=== PATIENT | female | born 1985 | race Caucasian/White ===

== ENCOUNTER → 2018-04-28 | Outpatient (CLI) | payer BC ==
--- NOTE | 2018-04-28 12:14 | MR ---
EXAMINATION TYPE: MR thoracic spine wo con DATE OF EXAM: 04/28/2018 11:43 AM COMPARISON: NONE HISTORY: Back pain Multiplanar MultiSpin echo imaging of the thoracic spine was performed. Disc spaces: No evidence for herniation protrusion or significant degenerative disc disease. Spinal canal: No evidence for canal stenosis. No intrinsic or extrinsic lesion. Thoracic spinal cord: Thoracic spinal cord is of normal caliber and signal. Paraspinal soft tissues: No evidence for paraspinal mass. No destructive lesions seen. Vertebral segments: No evidence for fracture. A few small scattered hemangiomas are noted of the thor acic segments. Hemangiomas at T9, T10 and T12. IMPRESSION: 1 several small hemangiomas noted. Otherwise unremarkable study.
== END | disposition home or self-care (01) ==
LOC: RADMRIMAIN 10:54
PROVIDERS: ATTEND Psychiatry & Neurology Neurology
DX: D18.00 Hemangioma unspecified site (principal)
CPT/HCPCS: 72146

== ENCOUNTER → 2018-08-25 | Outpatient (CLI) | payer BC ==
[2018-08-24 15:35] VITALS: BMI 30.1
[2018-08-25 11:55] VITALS: BP 123/85; PULSE 74; RESP 16
--- NOTE | 2018-08-25 12:22 | P.CONS ---
History of Present Illness - Reason for Consult Consult date: 08/25/18 - Chief Complaint Upper back pain - History of Present Illness This is a 33-year-old female with neck pain, mid back pain, and lower back pain. The patient is here today mostly for her upper and mid back pain. She states that her neurologist (Dr Graff)works on her neck and on her lumbar spine but he referred her to us to try interventional procedures on her thoracic spine. The patient is mostly around the shoulder blades today is more on the right side than the left side. The pain does not radiate around her chest. She denies any numbness or tingling in the chest wall area. She also denies any weakness in the upper or lower extremities or any paresthesia. She denies any weight loss. This pain is constant it sometimes wakes her up at night. The patient has been using Naprosyn and Lyrica for this pain. The patient states that we did residency ablation on her thoracic spine in 2013 which gave her a few years of pain relief. She is here today in hope that we can schedule her for another RFA on the thoracic medial branches. Past Medical History Past Medical History: Musculoskeletal Disorder Additional Past Medical History / Comment(s): back & neck pain History of Any Multi-Drug Resistant Organisms: None Reported Past Surgical History: Adenoidectomy, Orthopedic Surgery, Tonsillectomy Additional Past Surgical History / Comment(s): LEFT WRIST PIN PLACEMENT Past Anesthesia/Blood Transfusion Reactions: No Reported Reaction Past Psychological History: No Psychological Hx Reported Smoking Status: Never smoker Past Alcohol Use History: Occasional Past Drug Use History: None Reported - Past Family History Mother Family Medical History: No Reported History Medications and Allergies Home Medications Medication Instructions Recorded Confirmed Type ALPRAZolam [Xanax] 0.5 mg PO DAILY 08/24/18 08/25/18 History DULoxetine HCL [Cymbalta] 60 mg PO DAILY 08/24/18 08/25/18 History Naproxen [Naprosyn] 500 mg PO Q12HR 08/24/18 08/25/18 History tiZANidine HCL [Zanaflex] 2 mg PO BID 08/24/18 08/25/18 History tiZANidine HCL [Zanaflex] 4 mg PO HS 08/24/18 08/25/18 History Allergies Allergy/AdvReac Type Severity Reaction Status Date / Time No Known Allergies Allergy Verified 08/25/18 11:47 Physical Exam Vitals: Vital Signs Pulse Resp BP Pulse Ox 08/25/18 11:48 74 16 123/85 99 Intake and Output 08/24/18 08/25/18 08/25/18 22:59 06:59 14:59 Other: Weight 89.811 kg - Constitutional General appearance: average body habitus - EENT Eyes: PERRLA - Respiratory Respiratory: bilateral: CTA - Cardiovascular Rhythm: regular Heart sounds: normal: S1, S2 - Neurologic Neuro exam of the upper and lower extremities is within normal limits. She has mild tenderness in the upper and mid thoracic paravertebral area on the right side more than the left side. Neurologic: CNII-XII intact - Psychiatric Psychiatric: A&O x's 3, appropriate affect, intact judgment & insight Results Results: The patient had an MRI of the thoracic spine which was mostly within normal limits except for multiple hemangiomas. Assessment and Plan Plan: This is a 33-year-old female with what seems to be thoracic spondylosis without myelopathy. The patient had RFA on the thoracic medial branches previously was give her a few years of pain relief. At this point I will schedule the patient to have a diagnostic thoracic medial branch block under fluoroscopic guidance bilaterally. The levels will be decided to with a day of the procedure. If she gets good results from that then we can proceed with RFA. 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 I thank you for the referral
== END ==
LOC: PNWHC3 11:36
PROVIDERS: ATTEND Anesthesiology
DX: M47.814 Spondylosis without myelopathy or radiculopathy, thoracic region (principal); Z79.899 Other long term (current) drug therapy; Z79.2 Long term (current) use of antibiotics; Z90.89 Acquired absence of other organs
CPT/HCPCS: 99211

== ENCOUNTER 2018-09-15 09:00 | Day surgery (SDC) | payer BC ==
[2018-09-13 12:59] VITALS: BMI 29.5
[~2018-09-15 09:00] MED LIST: SODIUM CHLORIDE 0.9% 500 ML 500 ML IV SCH
[2018-09-15 10:07] VITALS: RESP 16; TEMP 98.2
[2018-09-15] MEDS ORDERED: LACTATED RINGERS 1,000 ML IV ONE (10:11)
[2018-09-15] MEDS ORDERED: IV FLUID CONTINUATION 1,000 ML IV ONE ×2 (10:53)
[2018-09-15 11:34] VITALS: BP 123/70; PULSE 80
--- NOTE | 2018-09-15 11:42 | P.PCN ---
Date of Procedure: 09/15/18 Surgeon: Dragan Shen Description of Procedure: PREOPERATIVE DIAGNOSIS : Thoracic spondylosis with Facet Arthropathy without myelopathy POSTOPERATIVE DIAGNOSIS: same PROCEDURE: Diagnostic thoracic medial branch block with fluoroscopy at bilateral T5, bilateral T6 ANESTHESIA: Local anesthetic; 2 mg midazolam as limb and 100 pg of fentanyl Surgeon: Dragan Shen MD PROCEDURE INDICATION: this is a very pleasant 33-year-old woman with a history of intractable thoracic pain. She presents today for thoracic medial branch nerve block. She has had thoracic radio frequency in the past and hopefully we are going down the past be able to help relieve her pain for a longer duration with this procedure. PROCEDURE DESCRIPTION: The patient was identified and evaluated in the preop holding area , risks and benefits and possible complications of the procedure and alternative were discussed with the patient, and the patient agreed to proceed with the procedure and signed the consent IV was started and vital signs monitored during the procedure and fluoroscopy was used to maximize the benefit and accuracy of the needle placement, and sedation was given to decrease patient anxiety, patient was taken to the procedure room and placed in prone position vital signs monitored in the back prepped. Under strict sterile technique using a right oblique fluoroscopy ,the junction of the transverse process and the superior articulating process of the vertebral body which corresponding to the fluoroscopy image of the eye of the Reed dog on the block side for the medial branches and subsequently , a 25-gauge 3.5 inch Quincke-type needles was placed at the junction of the base of the transverse process and the superior articular process at the appropriate level, and the needle was advanced until the periosteum contacted, needle placement confirmed with AP oblique and lateral view and after appropriate needle placement confirmed, and after negative aspiration, 0.5 mL of Marcaine 0.5% mixed with 40 mg depomedrol in divided doses was injected at each level and the needle subsequently removed. At the end of the procedure and the needles removed and a bandage applied after the skin was cleaned the cleaning solution patient taken to recovery room in stable condition and monitors in the recovery room for 20-30 minutes and discharged home in stable condition after discharge criteria met and patient will follow up for repeat of thoracic medial branch nerve block. EBL: Minimal COMPLICATION: None.
--- NOTE | 2018-09-15 12:12 | FL ---
Fluoroscopy HISTORY: Pain 4 seconds fluoroscopy time supplied to the referring clinician. 1 intraoperative C-arm images docume nt the procedure. See dictated report from anesthesia.
== END 2018-09-15 11:32 | disposition home or self-care (01) ==
LOC: ORPAIN 09:00
PROVIDERS: ATTEND Pain Medicine Pain Medicine
DX: M47.814 Spondylosis without myelopathy or radiculopathy, thoracic region (principal); D18.09 Hemangioma of other sites; Z79.1 Long term (current) use of non-steroidal anti-inflammatories (NSAID); Z79.899 Other long term (current) drug therapy
CPT/HCPCS: 81025; 64490; J2250; J1030; J3010

== ENCOUNTER 2018-10-06 09:25 | Day surgery (SDC) | payer BC ==
[2018-09-24 16:04] VITALS: BMI 29.5
[2018-10-06 10:17] VITALS: TEMP 98
[2018-10-06] MEDS ORDERED: LACTATED RINGERS 1,000 ML IV ONE (10:17)
--- NOTE | 2018-10-06 11:13 | P.PCN ---
Date of Procedure: 10/06/18 Surgeon: Marai L Schafer Pathology: none sent Condition: stable Disposition: PACU Description of Procedure: PREOPERATIVE DIAGNOSIS : Thoracic spondylosis with Facet Arthropathy without myelopathy POSTOPERATIVE DIAGNOSIS: same PROCEDURE: Diagnostic thoracic medial branch block with fluoroscopy at bilateral T5, bilateral T6 ANESTHESIA: Local anesthetic; and moderate conscious sedation with IV fentanyl and Versed PROCEDURE INDICATION: this is a very pleasant 33-year-old woman with a history of intractable thoracic pain. She presents today for thoracic medial branch nerve block. She has had thoracic radio frequency in the past and hopefully we are going down the past be able to help relieve her pain for a longer duration with this procedure. PROCEDURE DESCRIPTION: The patient was identified and evaluated in the preop holding area , risks and benefits and possible complications of the procedure and alternative were discussed with the patient, and the patient agreed to proceed with the procedure and signed the consent IV was started and vital signs monitored during the procedure and fluoroscopy was used to maximize the benefit and accuracy of the needle placement, and sedation was given to decrease patient anxiety, patient was taken to the procedure room and placed in prone position vital signs monitored in the back prepped. Under strict sterile technique using a right oblique fluoroscopy ,the junction of the transverse process and the superior articulating process of the vertebral body which corresponding to the fluoroscopy image of the eye of the Reed dog on the block side for the medial branches and subsequently , a 25-gauge 3.5 inch Quincke-type needles was placed at the junction of the base of the transverse process and the superior articular process at the appropriate level, and the needle was advanced until the periosteum contacted, needle placement confirmed with AP oblique and lateral view and after appropriate needle placement confirmed, and after negative aspiration, 0.5 mL of Ropivacaine 0.5% mixed with 40 mg Kenalog in divided doses was injected at each level and the needle subsequently removed. At the end of the procedure and the needles removed and a bandage applied after the skin was cleaned the cleaning solution patient taken to recovery room in stable condition and monitors in the recovery room for 20-30 minutes and discharged home in stable condition after discharge criteria met and patient will follow up for repeat of thoracic medial branch nerve block. EBL:none COMPLICATION: None.
[2018-10-06] MEDS ORDERED: IV FLUID CONTINUATION 1,000 ML IV ONE (11:18)
[2018-10-06 11:20] VITALS: RESP 18
[2018-10-06 11:35] VITALS: BP 113/72; PULSE 66
--- NOTE | 2018-10-07 12:58 | FL ---
EXAMINATION TYPE: FL guided pain mgmt statistic DATE OF EXAM: 10/06/2018 HISTORY: Flouroscopy time 8 seconds of fluoroscopy provided. IMPRESSION: 1. Fluoroscopy time.
== END 2018-10-06 11:45 | disposition home or self-care (01) ==
LOC: ORPAIN 09:25
PROVIDERS: ATTEND Anesthesiology
DX: M47.814 Spondylosis without myelopathy or radiculopathy, thoracic region (principal); F41.9 Anxiety disorder, unspecified
CPT/HCPCS: 81025; 64490; 64491; J2250; J3301; J3010; 99152

== ENCOUNTER → 2018-10-27 | Outpatient (CLI) | payer BC ==
[2018-10-27 12:51] VITALS: PULSE 74; RESP 16
[2018-10-27 13:03] VITALS: BP 140/95
--- NOTE | 2018-10-27 13:34 | P.PN ---
Subjective Progress Note Date: 10/27/18 This is a follow-up visit for this 33 years old female with a chronic history of severe midback pain diagnosed with thoracic spondylosis, we have done diagnostic medial branch blocks of thoracic area bilaterally T5 and T6 levels, patient reported that she had excellent pain relief after each block , she had 100% improvement of her mid back pain after each block , the first diagnostic block her pain dropped from 8/10-0/10 on the second one she had pain 3/10 before and dropped to 0/10 after the block, patient denies any motor or sensory deficit she denies any fever or night sweats and she denies any change in the bowel movement or urination, she continued to use Zanaflex 4 mg twice a day and 4 mg daily at bedtime and naproxen 500 mg twice a day, she gets prescription refills from her primary care and she denies any side effects from the medication Objective - Vital Signs Vital signs: Vital Signs Temp Pulse 74 10/27/18 12:40 Resp 16 10/27/18 12:40 BP 140/95 10/27/18 12:40 Pulse Ox 97 10/27/18 12:40 Intake & Output 10/26/18 10/27/18 10/27/18 18:59 06:59 18:59 Weight 88.451 kg - Exam Physical Examinations : 1-Constitutiona : Cooperative , not in acute distress . 2-HEENT : nech ; supple , no Lymphadenopathy , normal thyroid size . eyes : no ptosis , no icterus, no photophobia . ENT : normal of hearing , normal oropharynx , no Thrush . 3- Respiratory : Chest clear to auscultations Bilaterally , no wheezing , no Rhonchi . 4- Cardiovascular : regular rate and rhythem , S1 , S2 , no S3 , no S4. 5- Gastrointestinal : abdomen soft no tenderness , bowel sounds , no organomegally . 6- Genitourinary : Defferred . 7- neurologic : Cranial nerve II to XII intact , no focal neurological deffecit . 8-psychatric : alert , oriented X 3 , appropriate affect , intact judgment and insight . 9-Lymphatic : no Lymphadenopathy . 10- musculoskeltal : Cervical Spine motor stregnth in the deltoid and biceps, normal right side , normal Left side motor stregnth biceps and the wrist extensors normal right side ,normal left side . motor stregnth in the triceps muscle . normal Right side , normal Left side deep tendon reflexes normal at the biceps , normal at Brachioradialis , normal at triceps. positive cervical facet loading test . Tenderness over the occipital nerve Thoracic spine= positive facet loading test mid thoracic area Lumber spine moter stegnth lower extremities , thigh and legs 5/5 Right side , 5/5 Left side Assessment and Plan Plan: Assessment and plan= chronic severe midback pain secondary to thoracic spondylosis, patient had 100% improvement of her midback pain after the diagnostic medial branch blocks thoracic area, she will be good candidate to have radiofrequency ablation of the thoracic medial branch, we will start with the right side T5 and right-sided T6 levels , and later on went to the left side , patient currently getting prescription refill Zanaflex and naproxen and she will continue to get refills from her primary , patient reported that she had an episode of severe headache , and she had an MRI of the cervical spine done, ages 2 and she will bring the MRI report with checked and we'll reevaluate her regarding her neck pain - PQRS measures = - Patient's medications are documented in the chart. -Tobacco use is negative and counseling.Given. -Patient's has not received pneumococcal vaccine. -Advanced care planning discussed, patient not eligible. -Opiate contract not signed. -Pain positive and follow-up visit/procedure is scheduled. -Patient's blood pressure measured [ 140/95 ] , and documented in the record ,and patient will follow up with the primary care. -Patient's weight was measured and body mass index [ 29.6 ] above the, within the normal limits and counseling was done. and patient instructed to follow-up with the primary care physician. -Patient was not identified as an unhealthy alcohol user Time with Patient: Less than 30
== END ==
LOC: PNWHC3 12:32
PROVIDERS: ATTEND Specialist
DX: G89.29 Other chronic pain (principal); M47.814 Spondylosis without myelopathy or radiculopathy, thoracic region; Z79.1 Long term (current) use of non-steroidal anti-inflammatories (NSAID); Z79.899 Other long term (current) drug therapy
CPT/HCPCS: 99211

== ENCOUNTER 2018-11-10 08:28 | Day surgery (SDC) | payer BC ==
[2018-11-09 09:19] VITALS: BMI 29.5
[2018-11-10 08:43] VITALS: RESP 16; TEMP 97.1
[2018-11-10] MEDS ORDERED: LIDOCAINE 1% 20 ML VIAL (10MG/ML) FOR IV START INTRADERMA ONE (08:47)
[2018-11-10] MEDS ORDERED: LACTATED RINGERS 1,000 ML IV ONE (08:47)
[2018-11-10] MEDS ORDERED: IV FLUID CONTINUATION 1,000 ML IV ONE ×2 (09:46)
--- NOTE | 2018-11-10 09:47 | P.PCN ---
Date of Procedure: 11/10/18 Preoperative Diagnosis: Thoracic spondylosis without myelopathy Postoperative Diagnosis: Same as above Procedure(s) Performed: Right thoracic medial branch radiofrequency ablation under fluoroscopic guidance for the medial branches T5, the C6, and T 7 Anesthesia: other (Moderate IV conscious sedation with fentanyl and Versed) Surgeon: Maria L Schafer Pathology: none sent Condition: stable Disposition: PACU Description of Procedure: The patient was seen in preoperative holding area consent was obtained. The painful area on the right side of her thoracic spine was marked. The patient then was brought into the procedure room and placed in prone position. ASA monitors applied. Skin was prepped with DuraPrep and draped in a sterile manner. Lidocaine 1% was used to numb the skin up at the target points that were medial to the superior lateral angle of each transverse process. I used 20 -gauge 100 mm with 10 mm curved active tip radio frequency ablation needles. After contacting bone at the target points mentioned above I withdrew the needles by 1 or 2 mm and then motor stimulation showed only local twitches of these needles with no radiation around the chest wall. I then prepared a solution of 2 MLS T0.5 percent +40 mg of Kenalog were injected 1 mL in each needle. After that. Radiofrequency ablation started for 90 seconds at 80C. The patient tolerated procedure well. Bon Wier were taken out and bandages were applied to the skin. I will order a chest x-ray to rule out pneumothorax in the PACU however before the procedure the needles were protected by the thoracic vertebra and never went deeper and the transverse processes of each vertebra. The patient will have the left side done in the near future.
[2018-11-10 10:06] VITALS: BP 98/62; PULSE 68
--- NOTE | 2018-11-10 10:19 | XR ---
EXAMINATION TYPE: XR chest 1V portable DATE OF EXAM: 11/10/2018 COMPARISON: Prior chest x-ray 01/06/2013 HISTORY: Status post thoracic pain procedure TECHNIQUE: Single frontal view of the chest is obtained. FINDINGS: Patient is rotated. There is no focal air space opacity, pleural effusion, or pneumothorax seen. The cardiac silhouette size is within normal limits. The osseous structures are intact. IMPRESSION: No evident complication status post thoracic procedure
--- NOTE | 2018-11-10 11:56 | FL ---
Fluoroscopy HISTORY: Pain 38 seconds fluoroscopy time supplied to the referring clinician. 1 intraoperative C-arm images docum ent the procedure. See dictated report from anesthesia.
--- NOTE | 2018-11-14 12:41 | CDI ---
Outpatient Documentation Clarification Form Date: 11/14/18 CDS/Classification Clerk Name: Diamond Leiva Phone: If any questions, call Kayla Laughlin [facility] at [phone] Patient Name: Jeaneth Arevalo Admit Date: 11/10/18 Discharge Date: 11/10/18 ATTENTION: The [facility] Coding Staff appreciate your assistance in clarifying documentation. Please respond to the clarification below the line at the bottom and electronically sign. The [facility] Coding staff will review the response and follow-up if needed. Please note: Queries are made part of the Legal Health Record. If you have any questions, please contact the [facility]. Dear Dr. Schafer, How many spinal levels were injected/ablated? T5, C6 (was C6 really ablated or did you mean T6?), and T7 could be interpreted to mean anywhere from 2 to 6 levels. Thank you for your kind consideration. 3 medial branches were ablated at the T5, T6, T7 levels. MTDD
== END 2018-11-10 10:55 | disposition home or self-care (01) ==
LOC: ORPAIN 08:28
PROVIDERS: ATTEND Anesthesiology
DX: M47.814 Spondylosis without myelopathy or radiculopathy, thoracic region (principal); Z79.1 Long term (current) use of non-steroidal anti-inflammatories (NSAID); Z79.899 Other long term (current) drug therapy
CPT/HCPCS: 81025; 71045; 64633; 64634; J2250; J3301; J3010; 99152

== ENCOUNTER → 2018-11-30 | Outpatient (CLI) | payer BC ==
[2018-11-30 11:51] VITALS: BP 136/87; PULSE 65; RESP 16
--- NOTE | 2018-11-30 12:16 | P.PAINPG ---
Subjective Progress Note Date: 11/30/18 This is a follow-up visit for this 33 years old female with a chronic history of severe midback pain diagnosed with thoracic spondylosis, we have done at the frequency ablation of the medial branch thoracic area right side T5/T6/T7 , and she reported that after the procedure she continued to have severe mid back Bilaterally, and she currently reports that the pain on the right side is worse than the left side, patient denies any motor or sensory deficit she denies any fever or night sweats and she denies any change in the bowel movement or urination, she continued to use Zanaflex 2 mg twice daily, and naproxen 500 mg twice a day, she gets prescription refills from her primary care and she denies any side effects from the medication Physical Examinations : 1-Constitutiona : Cooperative , not in acute distress . 2-HEENT : nech ; supple , no Lymphadenopathy , normal thyroid size . eyes : no ptosis , no icterus, no photophobia . 3- neurologic : Cranial nerve II to XII intact , no focal neurological deffecit . 4-psychatric : alert , oriented X 3 , appropriate affect , intact judgment and insight . 5-Lymphatic : no Lymphadenopathy . 6- musculoskeltal : Thoracic spine= positive facet loading test mid thoracic area Lumber spine moter stegnth lower extremities , thigh and legs 5/5 Right side , 5/5 Left side Objective - Vital Signs Vital signs: Vital Signs Temp Pulse 65 11/30/18 11:44 Resp 16 11/30/18 11:44 BP 136/87 11/30/18 11:44 Pulse Ox 99 11/30/18 11:44 Intake & Output 11/29/18 11/30/18 11/30/18 18:59 06:59 18:59 Weight 87.997 kg Assessment and Plan Plan: Assessment and plan= thoracic spondylosis and facet arthropathy without myelopathy. Myofascial pain syndrome thoracic area. The patient had the radiofrequency ablation medial branch thoracic area at T5/T6/T7 , and she had some myofascial pain after the radiofrequency, she would be good candidate to have a trigger point injection on the right side thoracic area, and also she would be good candidate to have radiofrequency ablation of the left-sided medial branch thoracic area T5/T6/T7, patient would continue to use naproxen 500 mg twice a day and she could benefit from increasing the dose of Zanaflex to 4 mg twice a day PQRS Measure Charge Sheet Measure #130: Documentation of Current Meds in Medical Chart: Patient's medications documented in chart Measure #226: Tobacco Use: Screen & Cessation Intervention: Pt not a tobacco user Measure #111: Pneumonia Vaccination: Pneumococcal vaccine NOT administered or previously given Measure #47: Advance Care Plan: Advance care planning discussed & documented, pt chose/unable to give Measure #412: Opioid Treatment Agreement: No documentation of signed opioid treatment agreement Measure #408: Opioid Therapy Follow-up Evaluation: Patient had NO f/u eval minimum every 3 months during opioid therapy Measure #317: Preventitive Care & Scrn High Bld Press & F/U: Normal blood pressure, f/u not required Measure #128: Body Mass Index (BMI) Screening & Follow-up: BMI documented ABOVE normal parameters - f/u documented Measure #131: Pain Assessment & Follow-up: Pain positive & plan documented, Follow-up scheduled Measure #431: Unhealthy Alcohol Use Preventative Care & Scrn: Patient not identified as an unhealthy alcohol user PQRS Narrative: Smoking Status Never smoker Do You Want the Pneumonia No Vaccine AT THIS TIME? Blood Pressure 136/87 Pain Intensity [Bilateral 2 Upper Back] Scale Used Numeric (1 - 10) Hx Alcohol Use (MH) No Home Medications: Ambulatory Orders ALPRAZolam [Xanax] 0.5 mg PO DAILY 08/24/18 DULoxetine HCL [Cymbalta] 60 mg PO DAILY 08/24/18 Naproxen [Naprosyn] 500 mg PO Q12HR 08/24/18 tiZANidine HCL [Zanaflex] 2 mg PO BID 08/24/18 tiZANidine HCL [Zanaflex] 4 mg PO HS 08/24/18 Controlled Substance Measures - Controlled Substance Measures Is patient prescribed a controlled substance at discharge?: No
== END | disposition home or self-care (01) ==
LOC: PNWHC3 11:34
PROVIDERS: ATTEND Specialist
DX: G89.29 Other chronic pain (principal); M54.6 Pain in thoracic spine; M47.814 Spondylosis without myelopathy or radiculopathy, thoracic region; M79.18 Myalgia, other site; M46.84 Other specified inflammatory spondylopathies, thoracic region; Z79.1 Long term (current) use of non-steroidal anti-inflammatories (NSAID); Z79.899 Other long term (current) drug therapy
CPT/HCPCS: 99211

== ENCOUNTER → 2018-12-13 | Day surgery (SDC) | payer BC ==
[2018-12-07 11:54] VITALS: BMI 29.5
[~2018-12-13] MED LIST changes: +IV FLUID CONTINUATION 1,000 ML IV ONE; +LACTATED RINGERS 950 ML IV ONE
[2018-12-13 10:24] VITALS: RESP 18; TEMP 97.1
--- NOTE | 2018-12-13 10:51 | P.PCN ---
Date of Procedure: 12/13/18 Surgeon: Maria L Schafer Pathology: none sent Condition: stable Disposition: PACU Description of Procedure: Preoperative Diagnosis: Thoracic spondylosis without myelopathy Postoperative Diagnosis: Same as above Procedure(s) Performed: Left thoracic medial branch radiofrequency ablation under fluoroscopic guidance for the medial branches T5, the T6, and T 7 Anesthesia: other (Moderate IV conscious sedation with fentanyl and Versed) Surgeon: Maria L Schafer Pathology: none sent Condition: stable Disposition: PACU Description of Procedure: The patient was seen in preoperative holding area consent was obtained. The painful area on the right side of her thoracic spine was marked. The patient then was brought into the procedure room and placed in prone position. ASA monitors applied. Skin was prepped with Chloraprep and draped in a sterile manner. Lidocaine 1% was used to numb the skin up at the target points that were medial to the superior lateral angle of each transverse process. I used 20-gauge 100 mm with 10 mm curved active tip radio frequency ablation needles. After contacting bone at the target points mentioned above I withdrew the needles by 1 or 2 mm and then motor stimulation showed only local twitches of these needles with no radiation around the chest wall. I then prepared a solution of 2 MLS Of Ropivacaine 0.5%+40 mg of DepoMedrol were injected 1 mL in each needle. After that. Radiofrequency ablation started for 90 seconds at 80C. The patient tolerated procedure well. Bonesteel were taken out and bandages were applied to the skin.
[2018-12-13 11:27] VITALS: BP 113/71; PULSE 64
--- NOTE | 2018-12-13 14:32 | FL ---
Fluoroscopy HISTORY: Pain 9 seconds fluoroscopy time supplied to the referring clinician. 2 intraoperative C-arm images docume nt the procedure. See dictated report from anesthesia.
== END ==
LOC: ORPAIN 09:57
PROVIDERS: ATTEND Anesthesiology
DX: M47.814 Spondylosis without myelopathy or radiculopathy, thoracic region (principal); M79.18 Myalgia, other site; Z79.1 Long term (current) use of non-steroidal anti-inflammatories (NSAID); Z79.899 Other long term (current) drug therapy
CPT/HCPCS: 81025; 64633; 64634; J2250; J3301; J3010; 99152

== ENCOUNTER → 2018-12-29 | Outpatient (CLI) | payer BC ==
[2018-12-29 12:46] VITALS: BP 131/80; PULSE 80; RESP 20
--- NOTE | 2018-12-29 13:08 | P.PN ---
Subjective Progress Note Date: 12/29/18 This is a 33-year-old lady with history of mid and upper back pain. The patient had thoracic medial branch RFA for levels 6, 7, and 8 under fluoroscopic guidance bilaterally. She states that her pain in this area is better however she has pain above the procedure area on both sides. The pain intensity f luctuates between 3 and 7. She takes Zanaflex and Naprosyn for this pain however she does not feel that Zanaflex is giving her any pain relief. She has a desk job and work. The patient states that moving her neck sometimes increases her upper back pain. Today, pt denies new-onset weakness, bowel/bladder incontinence, or any other signs or symptoms of cauda equina syndrome. There are no signs of acute intoxication, and no indications of medication diversion or overuse. In addition to above, 13-point review of systems is also negative for chest pain, shortness of breath, changes in vision, changes in hearing, new onset weakness, abdominal pain, diarrhea, extreme fatigue, malaise, fever, skin changes, homicidal or suicidal ideation, or bowel or bladder incontinence. Vital Signs: Reviewed in EMR Gen: AAOx3, NAD HEENT: PERRLA,hearing grossly normal Pulm: resp unlabored Neck: supple, trachea midline Neuro exam of the upper extremities: Is within normal limits Straight leg raising test: Naveen's test: Range of motion of the lumbar spine: Facet loading test: Tenderness in the paravertebral musculature: There is no tenderness in the mid a nd upper thoracic paravertebral musculature She has normal range of motion of the cervical spine with no tenderness in the cervical paravertebral musculature Neuro: CN II-XII grossly intact, Imaging: Reviewed in EMR/chart Assessment: Cervical 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 1. Explanation: Opioid and psychological risk scores were reviewed. Diagnoses, prognoses, and multiple treatment options including but not limited to physical therapy, interventional therapies, adjuvant medical therapies, narcotic medication therapies, and surgery were discussed with the patient and all questions were answered to the patient's satisfaction. 2. Opioid agreement: The patient is not using opioids 3. Counseling: The patient was counseled extensively on SMOKING CESSATION, BODY MASS INDEX, EXERCISE. Specifically, the patient was instructed regarding the importance of smoking cessation, obesity, and exercise in the context of both chronic pain and overall health. 4. Procedures: None at this point I will have to review her cervical spine MRI 5. Consultations: None 6. Investigations: None 7. Medications: Stop Zanaflex and continue Naprosyn as needed 8. Disposition: Return to clinic in 2 weeks with a copy of her cervical spine MRI 9. Maps were reviewed and were appropriate. PQRS measures: 1-Patient's medications are documented in the chart. 2-Tobacco use is negative, counseling given 3-Patient has not had a pneumococcal vaccine. 4-Advanced care planning discussed, patient unable to give 5-Opioid contract not signed with the patient. 6-Pain positive, follow-up visit or procedure scheduled 7-Patient's blood pressure measured and documented normal limits. The patient will follow up with his primary care physician. 8-Patient's weight was measured, and body mass index ABOVE the normal limits, and counseling was done. Patient instructed to follow up with PCP. 9-Patient WAS NOT identified as an unhealthy alcohol user. Objective - Vital Signs Vital signs: Vital Signs Temp Pulse 80 12/29/18 12:39 Resp 20 12/29/18 12:39 BP 131/80 12/29/18 12:39 Pulse Ox 97 12/29/18 12:39 Intake & Output 12/28/18 12/29/18 12/29/18 18:59 06:59 18:59 Weight 90.718 kg
== END ==
LOC: PNWHC3 12:32
PROVIDERS: ATTEND Anesthesiology
DX: M47.814 Spondylosis without myelopathy or radiculopathy, thoracic region (principal); M47.812 Spondylosis without myelopathy or radiculopathy, cervical region; Z71.6 Tobacco abuse counseling
CPT/HCPCS: 99211

== ENCOUNTER → 2019-01-18 | Outpatient (CLI) | payer BC ==
[2019-01-18 14:41] VITALS: BP 125/82; PULSE 88; RESP 18
--- NOTE | 2019-01-18 19:44 | P.PN ---
Subjective Progress Note Date: 01/18/19 This is a follow-up visit for this 33 years old female with a chronic history of midback pain she is diagnosed with thoracic spondylosis, previously with done radiofrequency ablation of the thoracic medial branch, which helped her low back significantly, currently patient reporting that she is having neck pain and headache, the intensity of the pain increases with neck movement, interfering with her quality of life, patient reported that she had a cervical MRI, done previously at different institutions, but we don't have any report available, she reported intensity of the pain fluctuates between 4/10 increased to 6/10, she denies any motor or sensory deficit she denies any change in the bowel movem ent or urination, she continued to work, Objective - Vital Signs Vital signs: Vital Signs Temp Pulse 88 01/18/19 14:36 Resp 18 01/18/19 14:36 BP 125/82 01/18/19 14:36 Pulse Ox 98 01/18/19 14:36 Intake & Output 01/18/19 01/18/19 01/19/19 06:59 18:59 06:59 Weight 89.811 kg - Exam Physical Examinations : -Constitutiona : Cooperative , not in acute distress . -HEENT : nech ; supple , no Lymphadenopathy , normal thyroid size . eyes : no ptosis , no icterus, no photophobia . ENT : normal of hearing , normal oropharynx , no Thrush . - Respiratory : Chest clear to auscultations Bilaterally , no wheezing , no Rhonchi . - Cardiovascula : regular rate and rhythem , S1 , S2 , no S3 , no S4. - Gastrointestina : abdomen soft no tenderness , bowel sounds , no organomegally . - Genitourinary : Defferred . - neurologic : Cranial nerve II to XII intact , no focal neurological deffecit . -psychatric : alert , oriented X 3 , appropriate affect , intact judgment and insight . -Lymphatic : no Lymphadenopathy . - musculoskeltal : Cervical Spine motor stregnth in the deltoid and biceps, normal right side , normal Left side motor stregnth biceps and the wrist extensors normal right side ,normal left side . motor stregnth in the triceps muscle . normal Right side , normal Left side positive cervical facet loading test . Spurling test negative bilaterally. Neck distraction test positive bilaterally. Carmela sign negative bilaterally. Thoracic area= trigger point identified on the left side thoracic paravertebral muscles around T5-T6 paravertebral muscles Assessment and Plan Plan: Assessment and plan= neck pain mostly secondary to cervical spondylosis,(there is no MRI available ) Patient had MRI of the cervical spine done at different institutions will get the report. Patient will be seen in the pain clinic in 2-3 weeks at that time we'll get the report of MRI,] patient will be scheduled to have diagnostic Medial branches cervical area. - PQRS measures = - Patient's medications are documented in the chart. -Tobacco use is negative and counseling.Given. -Patient's has not received pneumococcal vaccine. -Advanced care planning discussed, patient not eligible. -Opiate contract not signed. -Pain positive and follow-up visit is scheduled. -Patient's blood pressure measured [125/82 ] , and documented in the record ,and patient will follow up with the primary care. -Patient's weight was measured and body mass index [30 ] above the normal limits and counseling was done. and patient instructed to follow-up with the primary care physician. -Patient was not identified as an unhealthy alcohol user Time with Patient: Less than 30
== END | disposition home or self-care (01) ==
LOC: PNWHC3 14:17
PROVIDERS: ATTEND Specialist
DX: M47.812 Spondylosis without myelopathy or radiculopathy, cervical region (principal); Z98.890 Other specified postprocedural states
CPT/HCPCS: 99211

== ENCOUNTER → 2019-01-24 | Outpatient (CLI) | payer BC ==
[2019-01-24 13:28] VITALS: BP 127/86; PULSE 66; RESP 16
--- NOTE | 2019-01-24 13:32 | P.PN ---
Progress Note - Text Progress Note Date: 01/24/19 This is a follow-up visit for this 33 years old female, she was seen a few days ago, and she is supposed to get this MRI report of her cervical spine that it was done recently at different institution, patient had the MRI done at the [facility] MRI done 08/05/2017, and MRI showed that patient had C5 6 disc protrusion Patient will be a candidate to have cervical epidural steroid injections under fluoroscopy guidance at C7-T1 X2 , and if she continued to have pain after cervical epidural steroid injection and we will do diagnostic medial branch block cervical area, treatment plan discussed with the patient she agreed with proceeding
== END ==
LOC: PNWHC3 13:02
PROVIDERS: ATTEND Specialist
DX: Z53.9 Procedure and treatment not carried out, unspecified reason (principal)

== ENCOUNTER 2019-02-21 08:28 | Day surgery (SDC) | payer BC ==
[2019-02-16 13:32] VITALS: BMI 29.5
[~2019-02-21 08:28] MED LIST changes: -IV FLUID CONTINUATION 1,000 ML IV ONE; +LACTATED RINGERS 1,000 ML IV SCH; -LACTATED RINGERS 950 ML IV ONE; -SODIUM CHLORIDE 0.9% 500 ML 500 ML IV SCH
[2019-02-21 09:14] VITALS: RESP 16; TEMP 98.3
--- NOTE | 2019-02-21 10:04 | P.PCN ---
Date of Procedure: 02/21/19 Procedure(s) Performed: . PROCEDURE 1. Cervical epidural steroid injection under fluoroscopic guidance, C7-T1 2. Cervical epidurogram. PREOPERATIVE DIAGNOSIS: 1- Cervical Degenerative Disc Diseases 2-cervical spondylosis with cervical Facet arthropathy without myelopathy POSTOPERATIVE DIAGNOSIS: : 1- Cervical Degenerative Disc Diseases , 2- cervical spondylosis with cervical Facet arthropathy without myelopathy ANESTHESIA: Local anesthesia with lidocaine 1 % , and moderate sedation, with Ve rsed 2 mg and Fentanyl 50 mcg. EBL 0 PROCEDURE INDICATION: The patient with neck pain and radiculitis unresponsive to conservative treatment consents for procedure. PROCEDURE DESCRIPTION / TECHNIQUE: The patient was seen and identified in the preoperative area. Risks, benefits, complications, including but not limited to infections ,bleeding , allergic reactions to the medications ,and not complete pain releife, and alternatives were discussed with the patient, the patient agreed to proceed with the procedure and signed the consent. Patient was taken to the OR and time out was completed. The patient was placed in the prone position on the procedure table. A pillow was placed under the patients chest to increase the cervical interlaminar space. The cervical area was prepped and draped in the usual sterile fashion. Vital signs were closely monitored during the procedure. Conscious sedation was used during the procedure to decrease patients anxiety. Using anterior-posterior fluoroscopy, the C7-T1 interlaminar space was identified and the skin over this site was marked and then infiltrated with 1% lidocaine subcutaneously. Subsequently, a 20-gauge 3-1/2-inch Tuohy epidural needle was inserted and advanced toward the epidural space by means of the ``hanging-drop technique and guided by AP and lateral fluoroscopy. The correct needle position in the epidural space was verified with the injection of 2 mL of the water soluble contrast dye Isovue-200 and observing an excellent epidurogram with the epidural spread of the dye, after negative aspiration for blood and CSF and in the absence of paresthesias. Again after negative aspiration, mixture containing 20 mg Dexamethasone and 2 ml of preservative- free normal saline injected and a washout of epidurogram was seen. Needle was withdrawn intact, skin was cleansed, and bandages were applied. Complications= none. Disposition= patient was placed in supine position and transferred to the recovery room area in stable condition and there was no evidence of upper or lower extremity motor or sensory deficit after the procedure patient was discharged from recovery room after discharge criteria met and home discharge instructions was given by the staff and patient will follow with the pain clinic in 2-4 weeks
[2019-02-21 10:26] VITALS: BP 121/77; PULSE 70
[2019-02-21] MEDS ORDERED: IV FLUID CONTINUATION 1,000 ML IV ONE (10:26)
--- NOTE | 2019-02-21 11:11 | FL ---
Fluoroscopy HISTORY: Pain 4 seconds fluoroscopy time supplied to the referring clinician. 1intraoperative C-arm images documen t the procedure. See dictated report from anesthesia.
== END 2019-02-21 10:30 | disposition home or self-care (01) ==
LOC: ORPAIN 08:28
PROVIDERS: ATTEND Specialist
DX: M50.13 Cervical disc disorder with radiculopathy, cervicothoracic region (principal); M47.22 Other spondylosis with radiculopathy, cervical region
CPT/HCPCS: 81025; 62321; J2250; J1100; J3010; Q9966; 99152

== ENCOUNTER 2019-03-17 09:29 | Day surgery (SDC) | payer BC ==
[2019-03-14 13:51] VITALS: BMI 30.4
[2019-03-17 09:54] VITALS: RESP 16; TEMP 97.5
--- NOTE | 2019-03-17 10:27 | P.PCN ---
Date of Procedure: 03/17/19 Procedure(s) Performed: PROCEDURE 1. Cervical epidural steroid injection under fluoroscopic guidance, C7-T1 2. Cervical epidurogram. PREOPERATIVE DIAGNOSIS: 1- Cervical Degenerative Disc Diseases 2-cervical spondylosis with cervical Facet arthropathy without myelopathy POSTOPERATIVE DIAGNOSIS: : 1- Cervical Degenerative Disc Diseases , 2- cervical spondylosis with cervical Facet arthropathy without myelopathy ANESTHESIA: Local anesthesia with lidocaine 1 % , and moderate sedation, with Versed 2 mg and Fentanyl 100 mcg. EBL 0 PROCEDURE INDICATION: The patient with neck pain and radiculitis unresponsive to conservative treatment consents for procedure. PROCEDURE DESCRIPTION / TECHNIQUE: The patient was seen and identified in the preoperative area. Risks, benefits, complications, including but not limited to infections ,bleeding , allergic reactions to the medications ,and not complete pain releife, and alternatives were discussed with the patient, the patient agreed to proceed with the procedure and signed the consent. Patient was taken to the OR and time out was completed. The patient was placed in the prone position on the procedure table. A pillow was placed under the patients chest to increase the cervical interlaminar space. The cervical area was prepped and draped in the usual sterile fashion. Vital signs were closely monitored during the procedure. Conscious sedation was used during the procedure to decrease patients anxiety. Using anterior-posterior fluoroscopy, the C7-T1 interlaminar space was identified and the skin over this site was marked and then infiltrated with 1% lidocaine subcutaneously. Subsequently, a 20-gauge 3-1/2-inch Tuohy epidural needle was inserted and advanced toward the epidural space by means of the ``hanging-drop technique and guided by AP and lateral fluoroscopy. The correct needle position in the epidural space was verified with the injection of 2 mL of the water soluble contrast dye Isovue-200 and observing an excellent epidurogram with the epidural spread of the dye, after negative aspiration for blood and CSF and in the absence of paresthesias. Again after negative aspiration, mixture containing 20 mg Dexamethasone and 2 ml of preservative- free normal saline injected and a washout of epidurogram was seen. Needle was withdrawn intact, skin was cleansed, and bandages were applied. Complications= none. Disposition= patient was placed in supine position and transferred to the recovery room area in stable condition and there was no evidence of upper or lower extremity motor or sensory deficit after the procedure patient was discharged from recovery room after discharge criteria met and home discharge instructions was given by the staff and patient will follow with the pain clinic in 2-4 weeks
[2019-03-17] MEDS ORDERED: IV FLUID CONTINUATION 1,000 ML IV ONE (10:36)
[2019-03-17 11:00] VITALS: BP 101/65; PULSE 73
--- NOTE | 2019-03-17 11:11 | FL ---
Fluoroscopy HISTORY: Pain 3 seconds fluoroscopy time supplied to the referring clinician. 1 intraoperative C-arm images docume nt the procedure. See dictated report from anesthesia.
== END 2019-03-17 11:04 | disposition home or self-care (01) ==
LOC: ORPAIN 09:29
PROVIDERS: ATTEND Specialist
DX: M47.22 Other spondylosis with radiculopathy, cervical region (principal); M50.10 Cervical disc disorder with radiculopathy, unspecified cervical region; M47.9 Spondylosis, unspecified
CPT/HCPCS: 81025; 62321; J2250; J1100; J3010; Q9966

== ENCOUNTER → 2019-03-30 | Outpatient (CLI) | payer BC ==
--- NOTE | 2019-03-30 14:50 | P.PAINPG ---
Subjective Progress Note Date: 03/30/19 Principal diagnosis: Neck pain, thoracic pain This is a very pleasant 33-year-old woman with a history of multiple pain complaints who presents today for follow-up after undergoing cervical epidural steroid injections. She reports these are very helpful in getting rid of the headaches she was expressing. She does still have significant pain in the trapezius area these have not really been helpful for her. She did have some thoracic medial branch blocks and radio frequencies performed and says this didn't seem to help her that much and that her pain is "deeper in". Objective - Vital Signs Vital signs: Intake & Output 03/29/19 03/30/19 03/30/19 18:59 06:59 18:59 Weight 90.718 kg - Exam General: The patient is alert and oriented. Patient is not sedated Patient answers all question appropriately. Cardiac: Heart is regular in rate and rhythm Respiratory: Clear to auscultation. No audible wheezes. Abdomen: Soft nontender nondistended. Musculoskeletal: Strength is normal bilaterally. Sensation is normal bilaterally. Straight leg raise is negative bilaterally. Facet loading maneuvers are negative in the cervical and thoracic region. She is tender to palpation over her trapezius muscles bilaterally. Neurological: Reflexes are preserved and symmetric bilaterally. Assessment and Plan Assessment: Cervical radiculopathy, occipital neuralgia, thoracic spondylosis Plan: Plan of Care 1. Medications: Patient will continue to use Zanaflex 4 mg by mouth daily at bedtime to help with sleep and pain control in the evening. 2. Interventions: None at this time 3. Referrals: None 4. Testing: None 5. Follow-up: 3 months for medication management PQRS Measure Charge Sheet Measure #130: Documentation of Current Meds in Medical Chart: Patient not eligible for medications to be documented Measure #226: Tobacco Use: Screen & Cessation Intervention: Pt not a tobacco user Measure #111: Pneumonia Vaccination: Pneumococcal vaccine NOT administered or previously given Measure #47: Advance Care Plan: Advance care planning discussed & documented, plan or surrogate given Measure #412: Opioid Treatment Agreement: No documentation of signed opioid treatment agreement Measure #408: Opioid Therapy Follow-up Evaluation: Patient had f/u eval minimum every 3 months during opioid therapy Measure #317: Preventitive Care & Scrn High Bld Press & F/U: Normal blood pressure, f/u not required Measure #128: Body Mass Index (BMI) Screening & Follow-up: BMI documented ABOVE normal parameters - f/u documented Measure #131: Pain Assessment & Follow-up: Pain positive & plan documented Measure #431: Unhealthy Alcohol Use Preventative Care & Scrn: Patient not identified as an unhealthy alcohol user PQRS Narrative: Smoking Status Never smoker Pain Intensity [Bilateral 4 Upper Back] Scale Used Numeric (1 - 10) Hx Alcohol Use (MH) No Home Medications: Ambulatory Orders ALPRAZolam [Xanax] 0.5 mg PO DAILY 08/24/18 DULoxetine HCL [Cymbalta] 60 mg PO DAILY 08/24/18 Naproxen [Naprosyn] 500 mg PO Q12HR 08/24/18 tiZANidine HCL [Zanaflex] 4 mg PO HS 08/24/18 Controlled Substance Measures - Controlled Substance Measures Is patient prescribed a controlled substance at discharge?: No
== END ==
LOC: PNWHC3 14:13
PROVIDERS: ATTEND Pain Medicine Pain Medicine
DX: M54.12 Radiculopathy, cervical region (principal); M47.24 Other spondylosis with radiculopathy, thoracic region; M54.81 Occipital neuralgia; Z79.899 Other long term (current) drug therapy; Z79.1 Long term (current) use of non-steroidal anti-inflammatories (NSAID)
CPT/HCPCS: 99211

== ENCOUNTER → 2019-04-13 | Outpatient (CLI) | payer BC ==
[2019-04-13 13:35] VITALS: BP 133/89; PULSE 66; RESP 16
--- NOTE | 2019-04-13 14:58 | P.PAINPG ---
Subjective Progress Note Date: 04/13/19 This is a very pleasant 33-year-old woman with a history of multiple pain complaints who presents today for follow-up after undergoing cervical epidural steroid injections. She reports these are very helpful in getting rid of the headaches and neck pain she was experiencing. She does not have any specific pain complaints today. She has undergone thoracic radiofrequency ablation in the past with good benefit. Objective - Vital Signs Vital signs: Reviewed in EMR - Exam GENERAL: Well appearing, in no acute distress PSYCH: Mood and affect is appropriate. Awake, alert, and oriented SKIN: Skin color, texture, turgor normal, no rashes or lesions HEENT: Normocephalic, atraumatic. EOM intact CV: No pedal edema RESP: Respirations are unlabored, no audible wheezing GI: Abdomen non-distended MUSCULOSKELETAL: Bilateral upper and lower extremity strength is normal and symmetric. No atrophy or tone abnormalities are noted. Neck: No pain to palpation over the cervical paraspinous muscles. Spurling nega tive, Axial Loading Test negative, Mcneal's sign negative. No pain with neck flexion, extension, or lateral flexion. No obvious deformity or signs of trauma. Normal cervical lordotic curve and normal cervical spine range of motion Gait: Gait is normal NEUR: Bilateral upper extremity coordination and muscle stretch reflexes are physiologic and symmetric. No loss of sensation is noted. Assessment and Plan Assessment: Cervical radiculopathy, occipital neuralgia, thoracic spondylosis Plan: Plan of Care 1. Medications: No prescriptions written today. Patient will continue to use Zanaflex 4 mg by mouth daily at bedtime to help with sleep and pain control in the evening. 2. Interventions: None at this time, patient will call us when pain returns for repeat epidural steroid injection 3. Referrals: To physical therapy for cervical traction, cervical neck exercises 4. Testing: None 5. Follow-up: When necessary Objective - Vital Signs Vital signs: Vital Signs Temp Pulse 66 04/13/19 13:24 Resp 16 04/13/19 13:24 BP 133/89 04/13/19 13:24 Pulse Ox 98 04/13/19 13:24 Intake & Output 04/12/19 04/13/19 04/13/19 18:59 06:59 18:59 Weight 90.718 kg PQRS Measure Charge Sheet Measure #130: Documentation of Current Meds in Medical Chart: Patient's medications documented in chart Measure #226: Tobacco Use: Screen & Cessation Intervention: Pt not a tobacco user Measure #412: Opioid Treatment Agreement: No documentation of signed opioid treatment agreement Measure #131: Pain Assessment & Follow-up: Pain positive & plan documented, Follow-up PRN Measure #431: Unhealthy Alcohol Use Preventative Care & Scrn: Patient not identified as an unhealthy alcohol user PQRS Narrative: Smoking Status Never smoker Blood Pressure 133/89 Pain Intensity [Bilateral 1 Posterior Neck] Scale Used Numeric (1 - 10) Hx Alcohol Use (MH) No Home Medications: Ambulatory Orders ALPRAZolam [Xanax] 0.5 mg PO DAILY 08/24/18 DULoxetine HCL [Cymbalta] 60 mg PO DAILY 08/24/18 Naproxen [Naprosyn] 500 mg PO Q12HR 08/24/18 tiZANidine HCL [Zanaflex] 4 mg PO HS 08/24/18 Controlled Substance Measures - Controlled Substance Measures Is patient prescribed a controlled substance at discharge?: No
== END | disposition home or self-care (01) ==
LOC: PNWHC3 13:01
PROVIDERS: ATTEND Anesthesiology
DX: M54.12 Radiculopathy, cervical region (principal); M47.814 Spondylosis without myelopathy or radiculopathy, thoracic region; M54.81 Occipital neuralgia
CPT/HCPCS: 99211

== ENCOUNTER 2019-07-11 09:25 | Day surgery (SDC) | payer BC ==
[2019-07-07 14:00] VITALS: BMI 29.6
[2019-07-11 10:04] VITALS: TEMP 97.6
--- NOTE | 2019-07-11 10:18 | P.PCN ---
Date of Procedure: 07/11/19 Surgeon: Maria L Schafer Pathology: none sent Condition: stable Disposition: PACU Description of Procedure: PROCEDURE 1. Cervical epidural steroid injection under fluoroscopic guidance, C7-T1 Rt paramedian approach. 2. Cervical epidurogram. : PREOPERATIVE DIAGNOSIS: cervical spondylosis without myelopathy POSTOPERATIVE DIAGNOSIS: : Same as above ANESTHESIA: Local anesthesia with 1% lidocaine and IV moderate conscious sedation with Versed and Fentanyl . EBL 0 PROCEDURE INDICATION: The patient with neck pain and radiculopathy unresponsive to conservative treatment consents for procedure. PROCEDURE DESCRIPTION / TECHNIQUE: The patient was seen and identified in the preoperative area. Risks, benefits, complications, including but not limited to infections ,bleeding , allergic reactions to the medications ,and not complete pain relief, and alternatives were discussed with the patient, the patient agreed to proceed with the procedure and signed the consent. Patient was taken to the OR and time out was completed. The patient was placed in the prone position on the procedure table. A pillow was placed under the patients chest to increase the flexion of the cervical spine . The cervical area was prepped and draped in the usual sterile fashion. Vital signs were closely monitored during the procedure. Conscious sedation was used during the procedure to decrease patients anxiety. Using anterior-posterior fluoroscopy, the C7-T1 interlaminar space was identified and the skin over this site was marked and then infiltrated with 1% lidocaine subcutaneously. Subsequently, a 20-gauge 3-1/2-inch Tuohy epidural needle was inserted and advanced toward the epidural space by means of loss of resistance to air technique in the right paramedian approach and guided by AP and lateral fluoroscopy. The needle tip contacted the lamina of T1 vertebra first, then it was walked off bone and into the epidural space using the loss of to air and fluoroscopic guidance to identify the epidural space. The correct needle position in the epidural space was verified with the injection of 1 mL of the water soluble contrast dye Isovue and observing an excellent epidurogram with the epidural spread of the dye, after negative aspiration for blood and CSF and in the absence of paresthesias. Again after negative aspiration, a 4 ml mixture containing 10 mg of Decadron and 3 ml of preservative free Normal Saline solution was injected and a washout of epidurogram was seen. Needle was withdrawn intact, skin was cleansed, and bandages were applied.
[2019-07-11] MEDS ORDERED: IV FLUID CONTINUATION 1,000 ML IV ONE (10:24)
[2019-07-11 10:46] VITALS: BP 122/79; PULSE 67; RESP 16
--- NOTE | 2019-07-11 12:43 | FL ---
Fluoroscopy HISTORY: Pain 4 seconds fluoroscopy time supplied to the referring clinician. 1 intraoperative C-arm images docume nt the procedure. See dictated report from anesthesia.
== END 2019-07-11 11:00 | disposition home or self-care (01) ==
LOC: ORPAIN 09:25
PROVIDERS: ATTEND Anesthesiology
DX: M54.2 Cervicalgia (principal); M47.22 Other spondylosis with radiculopathy, cervical region; M50.10 Cervical disc disorder with radiculopathy, unspecified cervical region
CPT/HCPCS: 62321; 81025; J2250; J1100; J3010; Q9966

== ENCOUNTER → 2019-08-09 | Outpatient (CLI) | payer BC ==
[2019-08-09 12:10] VITALS: BP 147/84; PULSE 92; RESP 18
--- NOTE | 2019-08-09 14:05 | P.PAINPG ---
Subjective Progress Note Date: 08/09/19 This is a follow-up visit for this 34 years old female with a chronic history of severe midback pain diagnosed with thoracic spondylosis, November 2018 we have done at the frequency ablation of the medial branch thoracic area right side T5/T6/T7 , and she reported the procedure helped her midback pain,, and she currently reports that she is having severe pain in the left side lower cervical and upper thoracic area, which is increased with any activity,, also patient complaining of severe right-sided neck pain which is increased with neck movement especially hyperextension of the neck, she is diagnosed with cervical degenerative disc disease and cervical spondylosis and we have done cervical epidural steroid injections 3, and she reported that procedure helped her headache and neck pain to some degree, she denies any motor or sensory deficit she denies any fever or night sweats., Objective - Vital Signs Vital signs: Vital Signs Temp Pulse 92 08/09/19 12:00 Resp 18 08/09/19 12:00 BP 147/84 08/09/19 12:00 Pulse Ox 99 08/09/19 12:00 Intake & Output 08/08/19 08/09/19 08/09/19 18:59 06:59 18:59 Weight 84.822 kg - Exam Physical Examinations : -Constitutiona : Cooperative , not in acute distress . -HEENT : nech : supple , no Lymphadenopathy , normal thyroid size . : eyes : no ptosis , no icterus, no photophobia . : ENT : normal of hearing , normal oropharynx , no Thrush . - Respiratory : Chest clear to auscultations Bilaterally , no wheezing , no Rhonchi . - Cardiovascula : regular rate and rhythem , S1 , S2 , no S3 , no S4. - Gastrointestina : abdomen soft no tenderness , bowel sounds , no organomegally . - Genitourinary : Defferred . - neurologic : Cranial nerve II to XII intact , no focal neurological deffecit . -psychatric : alert , oriented X 3 , appropriate affect , intact judgment and insight . -Lymphatic : no Lymphadenopathy . - musculoskeltal : Cervical Spine motor stregnth in the deltoid and biceps, normal right side , normal Left side motor stregnth biceps and the wrist extensors normal right side ,normal left side . motor stregnth in the triceps muscle . normal Right side , normal Left side deep tendon reflexes normal at the biceps , normal at Brachioradialis , normal at triceps. cervical facet loading test: Positive on the right side only Minimal tenderness over the right occipital nerve Spurling test negative bilaterally. Thoracic spine= Positive facet loading test mid thoracic area. left side only Positive trigger point in the left side thoracic area T2 to T7 paraspinal muscles Lumber spine moter stegnth lower extremities ,thigh and legs 5/5 Right side , 5/5 Left side Assessment and Plan Plan: Assessment and plan=1- cervical degenerative disc disease, and cervical spondylosis with cervical facet arthropathy Status post cervical epidural steroid injections 3 , she continued to have right-sided neck pain, patient could benefit from Right-sided medial branch blocks C2, C3, C4, C5 and possible RFA if she had positive results. 2-thoracic spondylosis with thoracic facet arthropathy , status post radiofrequency thermocoagulation of the thoracic medial branch At T5, T6, T7 , was done more than 6 months ago, currently patient complaining of pain above the area where we have done the RFA 3-myofascial pain syndrome left side thoracic paraspinal muscles and lower cervical area on the left side Patient could benefit from left-sided trigger point injections and lower cervical area and left side upper thoracic , and if she continued to have pain after the trigger point injection then we will consider doing diagnostic medial branch block left side upper thoracic area Time with Patient: Less than 30 PQRS Measure Charge Sheet Measure #130: Documentation of Current Meds in Medical Chart: Patient's medications documented in chart Measure #226: Tobacco Use: Screen & Cessation Intervention: Pt not a tobacco user Measure #111: Pneumonia Vaccination: Pneumococcal vaccine NOT administered or previously given Measure #47: Advance Care Plan: Advance care planning discussed & documented, pt chose/unable to give Measure #412: Opioid Treatment Agreement: No documentation of signed opioid treatment agreement Measure #408: Opioid Therapy Follow-up Evaluation: Patient had NO f/u eval minimum every 3 months during opioid therapy Measure #317: Preventitive Care & Scrn High Bld Press & F/U: Pre-hypertensive or hypertensive BP documented, pt will f/u with PCP Measure #128: Body Mass Index (BMI) Screening & Follow-up: BMI documented ABOVE normal parameters - f/u documented Measure #131: Pain Assessment & Follow-up: Pain positive & plan documented, Follow-up scheduled Measure #431: Unhealthy Alcohol Use Preventative Care & Scrn: Patient not identified as an unhealthy alcohol user PQRS Narrative: Smoking Status Never smoker Blood Pressure 147/84 Pain Intensity [Left Upper 5 Back] Pain Intensity [Neck] 3 Pain Intensity [Lower Back] 1 Scale Used Numeric (1 - 10) Hx Alcohol Use (MH) No Home Medications: Ambulatory Orders ALPRAZolam [Xanax] 0.5 mg PO DAILY 08/24/18 DULoxetine HCL [Cymbalta] 60 mg PO DAILY 08/24/18 Naproxen [Naprosyn] 500 mg PO Q12HR 08/24/18 tiZANidine HCL [Zanaflex] 4 mg PO HS 08/24/18 Cetirizine HCl/Pseudoephedrine [Zyrtec-D Tablet] 1 each PO DAILY 07/06/19 Phentermine HCl [Adipex-P] 37.5 mg PO AC-BRKFST 07/06/19 Controlled Substance Measures - Controlled Substance Measures Is patient prescribed a controlled substance at discharge?: No
== END | disposition home or self-care (01) ==
LOC: PNWHC3 11:51
PROVIDERS: ATTEND Specialist
DX: M50.30 Other cervical disc degeneration, unspecified cervical region (principal); M46.92 Unspecified inflammatory spondylopathy, cervical region; M47.812 Spondylosis without myelopathy or radiculopathy, cervical region; M47.814 Spondylosis without myelopathy or radiculopathy, thoracic region; M79.18 Myalgia, other site; Z79.891 Long term (current) use of opiate analgesic; Z79.899 Other long term (current) drug therapy
CPT/HCPCS: 99211

== ENCOUNTER 2019-08-23 08:33 | Day surgery (SDC) | payer BC ==
[2019-08-22 09:39] VITALS: BMI 28.4
[2019-08-23 08:53] VITALS: TEMP 97.6
--- NOTE | 2019-08-23 09:58 | P.PCN ---
Date of Procedure: 08/23/19 Procedure(s) Performed: Date of procedure: 08/23/19 Preoperative Diagnosis: myofascial pain syndrome of left cervical paraspinals, rhomboids on the left, trapezius, thoracic paraspinal Postoperative diagnosis: Same Anesthesia: Local Physician: Jignesh Estimated blood loss: 0 ml Indications for procedure: This is a 34-year-old patient with myofascial pain and palpable trigger points in above mentioned muscles. The patient consents for an injection after an explanation of risks including but not limited to bleeding and infection, benefits, and alternatives and the patient has signed a consent form indicating understanding of all of them. Description of procedure: After informed consent was obtained the patient's back was sterilely prepped in the usual fashion with ChloraPrep. 8 trigger points were identified via palpation of the above-mentioned muscles and marked sterilely. Each trigger point was injected with a 25-gauge half inch needle, with 1 mL of .5% ropvicaine for total of 8 mls. The patient's vital signs were stable afterwards and the procedure was tolerated well. Patient was discharged home with follow-up instructions. She'll follow up in clinic, she is interested in getting cervical medial branch RFA workup, however we need to see her cervical MRI prior to proceeding.
[2019-08-23] MEDS ORDERED: IV FLUID CONTINUATION 1,000 ML IV ONE (10:00)
[2019-08-23 10:18] VITALS: RESP 16
[2019-08-23 10:20] VITALS: BP 130/83; PULSE 71
== END 2019-08-23 10:30 | disposition home or self-care (01) ==
LOC: ORPAIN 08:33
PROVIDERS: ATTEND Student in an Organized Health Care Education/Training Program
DX: M79.18 Myalgia, other site (principal); M50.30 Other cervical disc degeneration, unspecified cervical region; M47.892 Other spondylosis, cervical region; M47.894 Other spondylosis, thoracic region; Z79.1 Long term (current) use of non-steroidal anti-inflammatories (NSAID); Z79.899 Other long term (current) drug therapy
CPT/HCPCS: 81025; 20553; J2250; J3010

== ENCOUNTER → 2019-09-08 | Outpatient (CLI) | payer BC ==
[2019-09-08 10:34] VITALS: BP 126/81; PULSE 79; RESP 16
--- NOTE | 2019-09-09 09:49 | P.PAINPG ---
Subjective Progress Note Date: 09/08/19 This is a follow-up visit for this 34 year old female with a chronic history of severe midback pain diagnosed with thoracic spondylosis, November 2018 we have done at the frequency ablation of the medial branch thoracic area right side T5/T6/T7 , and she reported the procedure helped her midback pain, and she currently reports that she is having severe pain in the left side shoulder blade region and low cervical portion of her neck, more on the right side. she is diagnosed with cervical degenerative disc disease and cervical spondylosis. She has had cervical epidural steroid injections in the past, which helped significantly. The last one that she had in July, she got some pain relief and would like to proceed with a repeat cervical epidural steroid injection. She did not get any long-lasting benefit from trigger point injections done in August 2019. She rates pain as 5/10, described as aching, burning. This pain has been present for approximately 17 years. Currently she takes naproxen, Zanaflex, Cymbalta for pain. Pain is worse with lying down and activity, and better with positioningsitting and relaxing. Review of systems is negative for chest pain, shortness of breath, new onset weakness, numbness/tingling, abdominal pain, malaise, fever, night sweats, chills, homicidal or suicidal ideation, or bowel or bladder incontinence. Objective Physical exam: Vitals: Reviewed in EMR GENERAL: Well appearing, in no acute distress PSYCH: Mood and affect is appropriate. Awake, alert, and oriented SKIN: Skin color, texture, turgor normal, no rashes or lesions HEENT: Normocephalic, atraumatic. EOM intact CV: No pedal edema RESP: Respirations are unlabored, no audible wheezing GI: Abdomen non-distended MUSCULOSKELETAL: Bilateral upper and lower extremity strength is normal and symmetric. No atrophy or tone abnormalities are noted. Neck: Tenderness to palpation over the cervical paraspinous muscles bilaterally, upper bilateral trigger points in left trapezius. Spurling negative, Mcneal's sign negative. No pain with neck flexion, extension, or lateral flexion. No obvious deformity or signs of trauma. Normal cervical lordotic curve Extremities: Peripheral joint ROM is full and pain free without obvious instability or laxity in all four extremities. No edema or skin discolorations noted. Gait: Gait is normal NEUR: Bilateral lower extremity coordination and muscle stretch reflexes are physiologic and symmetric. No loss of sensation is noted. Imaging: MRI cervical spine done on 07/04/2019 at [facility] MRI shows mild canal stenosis and moderate right foraminal narrowing at C5-6 as well as facet arthropathy throughout cervical spine. Assessment and Plan Plan: Assessment and plan=1- cervical degenerative disc disease, and cervical spondylosis with cervical facet arthropathy Status post cervical epidural steroid injections 3 , with good benefit, she will likely benefit from repeat cervical epidural steroid injection. We will schedule this. If no/limited benefit would proceed with cervical medial branch workup 2-thoracic spondylosis with thoracic facet arthropathy , status post radiofrequency thermocoagulation of the thoracic medial branch At T5, T6, T7 , was done more than 6 months ago, currently patient complaining of pain above the area where we have done the RFA 3-myofascial pain syndrome left side thoracic paraspinal muscles and lower cervical area on the left side Patient not significantly benefit from trigger point injections Objective - Vital Signs Vital signs: Vital Signs Temp Pulse 79 09/08/19 10:23 Resp 16 09/08/19 10:23 BP 126/81 09/08/19 10:23 Pulse Ox PQRS Measure Charge Sheet Measure #130: Documentation of Current Meds in Medical Chart: Patient's medications documented in chart Measure #226: Tobacco Use: Screen & Cessation Intervention: Pt not a tobacco user Measure #111: Pneumonia Vaccination: Pneumococcal vaccine NOT administered or previously given Measure #47: Advance Care Plan: Advance care planning discussed & documented, pt chose/unable to give Measure #412: Opioid Treatment Agreement: No documentation of signed opioid treatment agreement Measure #317: Preventitive Care & Scrn High Bld Press & F/U: Normal blood pressure, f/u not required Measure #128: Body Mass Index (BMI) Screening & Follow-up: BMI documented within normal parameters Measure #131: Pain Assessment & Follow-up: Pain positive & plan documented, Follow-up scheduled Measure #431: Unhealthy Alcohol Use Preventative Care & Scrn: Patient not identified as an unhealthy alcohol user PQRS Narrative: Smoking Status Never smoker Blood Pressure 126/81 Pain Intensity [Upper Back] 5 Scale Used Numeric (1 - 10) Hx Alcohol Use (MH) No Home Medications: Ambulatory Orders ALPRAZolam [Xanax] 0.5 mg PO DAILY 08/24/18 DULoxetine HCL [Cymbalta] 60 mg PO DAILY 08/24/18 Naproxen [Naprosyn] 500 mg PO Q12HR 08/24/18 tiZANidine HCL [Zanaflex] 4 mg PO HS 08/24/18 Cetirizine HCl/Pseudoephedrine [Zyrtec-D Tablet] 1 each PO DAILY 07/06/19 Phentermine HCl [Adipex-P] 37.5 mg PO AC-BRKFST 07/06/19 Controlled Substance Measures - Controlled Substance Measures Is patient prescribed a controlled substance at discharge?: No
== END | disposition home or self-care (01) ==
LOC: PNWHC3 10:11
PROVIDERS: ATTEND Anesthesiology
DX: G89.29 Other chronic pain (principal); M50.30 Other cervical disc degeneration, unspecified cervical region; M47.812 Spondylosis without myelopathy or radiculopathy, cervical region; M46.92 Unspecified inflammatory spondylopathy, cervical region; M47.814 Spondylosis without myelopathy or radiculopathy, thoracic region; M46.94 Unspecified inflammatory spondylopathy, thoracic region; M79.18 Myalgia, other site; Z98.890 Other specified postprocedural states; Z79.1 Long term (current) use of non-steroidal anti-inflammatories (NSAID); Z79.899 Other long term (current) drug therapy
CPT/HCPCS: 99211

== ENCOUNTER 2019-09-15 08:30 | Day surgery (SDC) | payer BC ==
[2019-09-13 16:22] VITALS: BMI 28.4
[2019-09-15 08:49] VITALS: RESP 16; TEMP 97
[2019-09-15 09:57] VITALS: BP 123/74; PULSE 59
--- NOTE | 2019-09-15 10:13 | P.PCN ---
Date of Procedure: 09/15/19 Procedure(s) Performed: Diagnosis: Cervical radiculopathy Cervical degenerative disc disease POSTOPERATIVE DIAGNOSIS: Diagnoses: Cervical radiculopathy Cervical degenerative disc disease PROCEDURE Cervical Epidural steroid injection under fluoroscopic guidance at the C7-T1 interspace using left paramedian approach Cervical epidurogram ANESTHESIA: Local with 1% lidocaine 3 ml and IV sedation with Versed and fentanyl, sedation time 8 minutes Fluoroscopy was used for the procedure and images were saved in the radiology portion of the chart. EBL: Minimal PROCEDURE INDICATION: The patient presents with cervical radicular symptoms unresponsive to conservative treatment. PROCEDURE DESCRIPTION / TECHNIQUE: The patient was seen and identified in the preoperative area. Risks, benefits, complications including but not limited to infections ,bleeding ,allergic reaction to the medications ,nerve damage and incomplete pain relief, and alternatives were discussed with the patient. The patient agreed to proceed with the procedure and signed the consent. IV was started, and vital signs were stable. Patient was taken to the OR and time out was completed. The patient was placed in the prone position on procedure table and a pillow was placed under the chest area. The cervical area was prepped and draped in the usual sterile fashion. Conscious sedation was used during the procedure to decrease patients anxiety. Vital signs was monitored during the entire procedure. Using anterior-posterior fluoroscopy, the C7-T1 interlaminar space was identified and the skin over this site was marked and then infiltrated with 1% lidocaine subcutaneously. Subsequently, a 20-gauge Tuohy epidural needle was inserted and advanced toward the epidural space using the loss of resistance technique and guided by AP and 50 oblique fluoroscopy. The correct needle position in the epidural space was verified. After negative aspiration for blood and CSF and in the absence of paresthesias, Isovue 200 2 mL's was injected under live fluoroscopy with good epidural spread. After negative aspiration, a 5 ml mixture containing 10 mg of dexamethasone, 3 mL of preservative free normal saline and 1 mL of 1% lidocaine was injected. Needle was withdrawn intact, skin was cleansed, and bandages were applied. COMPLICATIONS: None DISPOSITION / PLANS: The patient was placed in a supine position and transferred to the recovery area in a stable condition for observation. There was no evidence of lower extremity motor or sensory deficit after the procedure. Patient was discharged from the recovery room after meeting discharge criteria. Home discharge instructions were given to the patient by the staff. The patient will be scheduled for repeat procedure in 4 weeks.
--- NOTE | 2019-09-15 15:57 | FL ---
EXAMINATION TYPE: FL guided pain mgmt statistic DATE OF EXAM: 09/15/2019 HISTORY: Flouroscopy time 6 seconds of fluoroscopy provided. IMPRESSION: 1. Fluoroscopy time.
== END 2019-09-15 10:12 | disposition home or self-care (01) ==
LOC: ORPAIN 08:30
PROVIDERS: ATTEND Anesthesiology
DX: G89.29 Other chronic pain (principal); M50.13 Cervical disc disorder with radiculopathy, cervicothoracic region; M79.18 Myalgia, other site; M47.23 Other spondylosis with radiculopathy, cervicothoracic region; Z79.899 Other long term (current) drug therapy; Z79.1 Long term (current) use of non-steroidal anti-inflammatories (NSAID)
CPT/HCPCS: 81025; 62321; J2250; J3010; 99152

== ENCOUNTER → 2019-10-13 | Outpatient (CLI) | payer BC ==
[2019-10-13 11:48] VITALS: BP 121/87; PULSE 84; RESP 16
--- NOTE | 2019-10-14 09:17 | P.PAINPG ---
Subjective Progress Note Date: 10/13/19 This is a follow-up visit for this 34 year old female with a chronic history of severe neck and midback pain diagnosed with cervical degenerative disc disease, cervical spondylosis as well as thoracic spondylosis, most recently we have done cervical epidural steroid injection in September 2019. Unfortunately, she did not get significant relief from this procedure. Today, she has 2 separate pain complaints, first one located in left thoracic region, nonradiating, rated as 2- 6/10, worse with activity and stress. In the past, we have done radio frequency ablation of the medial branch thoracic area T5/T6/T7 , and she reported the procedure helped her midback pain. She is interested in repeating the procedure. Her second area of pain is right posterior neck radiating to right occipital region rated as 2 to 6/10. Pain is worse with activity and stress. She does not note any relieving factors so far. In the past, we had discussed doing cervical medial branch workup for this pain and she would like to proceed with this in the future. Currently she takes naproxen, Zanaflex, Cymbalta for pain. Review of systems is negative for chest pain, shortness of breath, new onset weakness, numbness/tingling, abdominal pain, malaise, fever, chills, homicidal or suicidal ideation, or bowel or bladder incontinence. She does endorse some night sweats. Objective Physical exam: Vitals: Reviewed in EMR GENERAL: Well appearing, in no acute distress PSYCH: Mood and affect is appropriate. Awake, alert, and oriented SKIN: Skin color, texture, turgor normal, no rashes or lesions HEENT: Normocephalic, atraumatic. EOM intact CV: No pedal edema RESP: Respirations are unlabored, no audible wheezing GI: Abdomen non-distended MUSCULOSKELETAL: Bilateral upper and lower extremity strength is normal and symmetric. No atrophy or tone abnormalities are noted. Neck: Tenderness to palpation over the cervical paraspinous muscles, on the right, Spurling negative, Mcneal's sign negative. No pain with neck flexion, extension, or lateral flexion. No obvious deformity or signs of trauma. Normal cervical lordotic curve. Mild tenderness to palpation along left thoracic paraspinal musculature Extremities: Peripheral joint ROM is full and pain free without obvious instability or laxity in all four extremities. No edema or skin discolorations noted. Gait: Gait is normal NEUR: Bilateral upper and lower extremity coordination and muscle stretch reflexes are physiologic and symmetric. No loss of sensation is noted. Imaging: MRI cervical spine done on 07/04/2019 at [facility] MRI shows mild canal stenosis and moderate right foraminal narrowing at C5-6 as well as facet arthropathy throughout cervical spine. Assessment and Plan Plan: Assessment and plan= 1- cervical degenerative disc disease, and cervical spondylosis with cervical facet arthropathy Status post cervical epidural steroid injections 3 , patient did not get any significant relief from last injection. She would likely benefit from medial branch workup. We will plan on right sided medial branch block at TON, C3, C4 for facets C2-3 and C3-4. She would like this scheduled after thoracic radiofrequency ablation. 2-thoracic spondylosis with thoracic facet arthropathy , status post radiofrequency thermocoagulation of the thoracic medial branch 3-myofascial pain syndrome left side thoracic paraspinal muscles and lower cervical area on the left side- Patient did not significantly benefit from trigger point injections Follow-up: For thoracic radio frequency ablation PQRS Measure Charge Sheet Measure #130: Documentation of Current Meds in Medical Chart: Patient's medications documented in chart Measure #226: Tobacco Use: Screen & Cessation Intervention: Pt not a tobacco user Measure #111: Pneumonia Vaccination: Pneumococcal vaccine NOT administered or previously given Measure #47: Advance Care Plan: Advance care planning discussed & documented, pt chose/unable to give Measure #412: Opioid Treatment Agreement: No documentation of signed opioid treatment agreement Measure #317: Preventitive Care & Scrn High Bld Press & F/U: Normal blood pressure, f/u not required Measure #128: Body Mass Index (BMI) Screening & Follow-up: BMI documented above normal parameters, follow up with PCP Measure #131: Pain Assessment & Follow-up: Pain positive & plan documented, Follow-up scheduled Measure #431: Unhealthy Alcohol Use Preventative Care & Scrn: Patient not identified as an unhealthy alcohol user PQRS Measure Charge Sheet PQRS Narrative: Smoking Status Never smoker Pain Intensity [Neck] 6 Hx Alcohol Use (MH) No Home Medications: Ambulatory Orders ALPRAZolam [Xanax] 0.5 mg PO DAILY 08/24/18 DULoxetine HCL [Cymbalta] 60 mg PO DAILY 08/24/18 Naproxen [Naprosyn] 500 mg PO Q12HR 08/24/18 tiZANidine HCL [Zanaflex] 4 mg PO HS 08/24/18 Cetirizine HCl/Pseudoephedrine [Zyrtec-D Tablet] 1 each PO DAILY 07/06/19 Controlled Substance Measures - Controlled Substance Measures Is patient prescribed a controlled substance at discharge?: No
== END | disposition home or self-care (01) ==
LOC: PNWHC3 11:25
PROVIDERS: ATTEND Anesthesiology
DX: M50.30 Other cervical disc degeneration, unspecified cervical region (principal); M47.812 Spondylosis without myelopathy or radiculopathy, cervical region; M46.92 Unspecified inflammatory spondylopathy, cervical region; M47.814 Spondylosis without myelopathy or radiculopathy, thoracic region; M46.94 Unspecified inflammatory spondylopathy, thoracic region; Z98.890 Other specified postprocedural states; M79.18 Myalgia, other site; Z79.1 Long term (current) use of non-steroidal anti-inflammatories (NSAID); Z79.899 Other long term (current) drug therapy
CPT/HCPCS: 99211

== ENCOUNTER 2019-10-27 08:29 | Day surgery (SDC) | payer BC ==
[2019-10-25 13:12] VITALS: BMI 29.3
[2019-10-27 08:48] VITALS: TEMP 98.2
[2019-10-27] MEDS ORDERED: fentaNYL (PF) 50 MCG/ML 2 ML AMP ONE (09:32)
[2019-10-27] MEDS ORDERED: MIDAZOLAM 2 MG/2 ML VIAL ONE (09:32)
[2019-10-27] MEDS ORDERED: LIDOCAINE 4% (PF) 5 ML AMP ONE (09:32)
[2019-10-27] MEDS ORDERED: LACTATED RINGERS 1,000 ML IV ONE (10:05)
--- NOTE | 2019-10-27 10:09 | P.PCN ---
Date of Procedure: 10/27/19 Procedure(s) Performed: PREOPERATIVE DIAGNOSIS: Thoracic Spondylosis POSTOPERATIVE DIAGNOSIS: Same PROCEDURES: Radiofrequency ablation of the T5, T6, T7 medial branches with fluoroscopic guidance on the left side SURGEON: Meagan Hanna MD. ANESTHESIA: Lidocaine 1% 5 mL, Moderate sedation with intravenous Versed and fentanyl, sedation time 23 minutes EBL: Minimal Fluoroscopy was used for the procedure and images were saved in the radiology portion of the chart. PROCEDURE INDICATION: The patient with low back pain secondary to Thoracic facet arthropathy who had more than 50% relief of pain with previous thoracic radiofrequency ablation PROCEDURE DESCRIPTION / TECHNIQUE: The patient was seen and identified in the preoperative area. Risks, benefits, complications, including but not limited to risk of infection ,bleeding , allergic reactions to the medications and incomplete pain relief , and alternatives were discussed with the patient, the patient agreed to proceed with the procedure and signed the consent. IV was started. The operative site was marked. Patient was taken to the OR and time out was completed. The patient was placed in the prone position on the procedure table. The Thoracic area was prepped and draped in the usual sterile fashion. . Vital signs were closely monitored during the procedure .IV sedation was used during the procedure to decrease patients anxiety. Using AP and then contralateral oblique with caudal tilt fluoroscopy, the transverse articular processes of the T5, T6, T7 vertebrae were identified, marked, and localized with 1% lidocaine. Subsequently, an 18 guage 100 mm radiofrequency cannula with a 10-mm active tip was advanced guided by fluoroscopy to the identified target at each site (superolateral portion of the above-mentioned transverse processes). Needle positioning was confirmed on AP, oblique and lateral fluoroscopy. Motor testing at 2.5 Hz was done with paraspinal muscle stimulation only, and no radicular symptoms. Then 1 mL of 4% lidocaine was injected in each site. Radiofrequency thermocoagulation at 80 degrees celsius for 90 seconds was then performed. A second radiofrequency thermocoagulation was performed after advancing the needles slightly more lateral along the transverse process. Spearfish were removed. Sterile dressings were applied. COMPLICATIONS: No acute complications. DISPOSITION / PLANS: The patient was placed in a supine position and transferred to the recovery area in a stable condition for observation and was discharged from the recovery room after meeting discharge criteria. Home discharge instructions given to the patient by the staff. The patient was instructed to report to an emergency room if patient experienced shortness of breath. The patient will follow up in clinic in 4 weeks.
[2019-10-27 10:13] VITALS: RESP 16
--- NOTE | 2019-10-27 10:17 | FL ---
EXAMINATION TYPE: FL guided pain mgmt statistic DATE OF EXAM: 10/27/2019 HISTORY: Fluoroscopy time 13 seconds of fluoroscopy provided. IMPRESSION: 1. Fluoroscopy time.
[2019-10-27 10:22] VITALS: BP 129/87; PULSE 59
== END 2019-10-27 10:34 | disposition home or self-care (01) ==
LOC: ORPAIN 08:29
PROVIDERS: ATTEND Anesthesiology
DX: G89.29 Other chronic pain (principal); M47.813 Spondylosis without myelopathy or radiculopathy, cervicothoracic region; M50.30 Other cervical disc degeneration, unspecified cervical region; M79.18 Myalgia, other site; Z79.1 Long term (current) use of non-steroidal anti-inflammatories (NSAID); Z79.899 Other long term (current) drug therapy
CPT/HCPCS: 81025; 64633; 64634; J2001; J2250; J3010; 99152; 99153

== ENCOUNTER → 2019-11-14 | Day surgery (SDC) | payer BC ==
[2019-11-10 14:35] VITALS: BMI 29.6
[~2019-11-14] MED LIST changes: +BUPIVACAINE (PF) 0.5% 30 ML VIAL ONE; +IV FLUID CONTINUATION 800 ML IV ONE; +LACTATED RINGERS 1,000 ML IV ONE; +LIDOCAINE 1% 20 ML VIAL (10MG/ML) FOR IV START INTRADERMA ONE; +MIDAZOLAM 2 MG/2 ML VIAL ONE; +fentaNYL (PF) 50 MCG/ML 2 ML AMP ONE; +methylPREDNISolone ACETATE 40 MG/ML 1 ML VIAL ONE
[2019-11-14 08:55] VITALS: RESP 18; TEMP 97.8
--- NOTE | 2019-11-14 09:44 | P.PCN ---
Date of Procedure: 11/14/19 Procedure(s) Performed: PREOPERATIVE DIAGNOSIS: 1-Cervical Spondylosis with Facet Arthropathy.without myelopathy. 2-cervical degenerative disc disease. 3-occipital n euralgia POSTOPERATIVE DIAGNOSIS: Same as preop diagnosis PROCEDURES: 1-Diagnostic ,right. C2 , C3, medial branch blocks, with fluoroscopic guidance (fluoroscopy images available in radiology department ) 2- Diagnostic right side third occipital nerve block under fluoroscopy guidance ( to target the facet joint at C2--3 C3-4 ) ANESTHESIA: Local with 1% lidocaine; moderate sedation with Versed. 2 mg , and fentanyl 50 micrograms EBL: Minimal PROCEDURE INDICATION: The patient with neck pain secondary to cervical arthropathy unresponsive to more conservative treatments. PROCEDURE DESCRIPTION / TECHNIQUE: The patient was seen and identified in the preoperative area. Risks, benefits, complications, and alternatives were discussed with the patient, the patient agreed to proceed with the procedure and signed the consent. IV was started. Vital signs remained stable throughout the procedure. Patient was taken to the OR and time out was completed. The patient was placed in the prone position on the procedure table. A pillow was placed under the patients chest to increase the cervical interlaminar space. The cervical area was prepped and draped in the usual sterile fashion. Critical pause was taken. Vital signs were closely monitored during the procedure. Conscious sedation was used during the procedure to decrease patients anxiety. Using cross-table lateral fluoroscopy, the centroid of the trapezoid of right C2 ,C3, was identified, marked, and localized with 1% lidocaine 1 ml at each level for skin and Sub Q infiltrations . Subsequently, a 22 G spinal needle was advanced guided by fluoroscopy to the centroid of the trapezoid of Right C2 ,C3, [place] tip position was confirmed at the centroid of the trapezoids of Right C2 ,C3 , with anteroposterior fluoroscopy. Subsequently, 1 ml of preservative-free Ropivacaine 0.5% mixed with Depo-Medrol 20 mg and half ml of the mixture was injected after negative aspiration for blood and CSF. An to do the right side third occipital nerve block 22-gauge Quincke Needle placed at the center of the facet joints between the C2 and C3 (the location of the third occipital nerve) And after appropriate needle placement confirmed with AP and lateral view. After negative aspiration ropivacaine 0.5% half mL and 20 mg of Depo-Medrol injected after negative aspiration patient tolerated the procedure well without any complaints. COMPLICATIONS: No acute complications. DISPOSITION / PLANS: The patient was placed in a supine position and transferred to the recovery area in a stable condition for observation and was discharged from the recovery room after meeting discharge criteria. Home discharge instructions given to the patient by the staff. The patient was reexamined prior to discharge. The patient will schedule a follow up in the clinic in 2-4 weeks.
[2019-11-14 09:48] VITALS: PULSE 86
[2019-11-14 10:01] VITALS: BP 122/84
--- NOTE | 2019-11-14 19:39 | FL ---
EXAMINATION TYPE: FL guided pain mgmt statistic DATE OF EXAM: 11/14/2019 HISTORY: Fluoroscopy time 7 seconds of fluoroscopy provided. IMPRESSION: 1. Fluoroscopy time.
== END ==
LOC: ORPAIN 08:31
PROVIDERS: ATTEND Specialist
DX: M47.812 Spondylosis without myelopathy or radiculopathy, cervical region (principal); M50.30 Other cervical disc degeneration, unspecified cervical region; M54.81 Occipital neuralgia
CPT/HCPCS: 81025; 64405; 64490; 64491; J2250; J1030; J3010; 99152

== ENCOUNTER → 2019-12-06 | Outpatient (CLI) | payer BC ==
[2019-12-06 13:27] VITALS: BP 103/70; PULSE 80; RESP 16
--- NOTE | 2019-12-06 13:48 | P.PAINPG ---
Subjective Progress Note Date: 12/06/19 This is a follow-up visit for this 34 year old female with a chronic history of severe neck and midback pain diagnosed with cervical degenerative disc disease, cervical spondylosis as well as thoracic spondylosis, most recently we have done cervical epidural steroid injection in September 2019. Unfortunately, she did not get significant relief from this procedure. Recently we did right side medial branch block cervical area at Right C2, C3, and third occipital nerve she gets excellent pain relief of her neck pain and headache, the patient relief was for was for short-term, she reported that her pain was 8/10 dropped to 0/10 after the block. Currently she takes naproxen, Zanaflex, Cymbalta for pain. Review of systems is negative for chest pain, shortness of breath, new onset weakness, numbness/tingling, abdominal pain, malaise, fever, chills, homicidal or suicidal ideation, or bowel or bladder incontinence. She does endorse some night sweats. Objective - Vital Signs Vital signs: Vital Signs Temp Pulse 80 12/06/19 13:21 Resp 16 12/06/19 13:21 BP 103/70 12/06/19 13:21 Pulse Ox 97 12/06/19 13:21 - Exam -Constitutiona : Cooperative , not in acute distress . -HEENT : nech : supple , no Lymphadenopathy , normal thyroid size . : eyes : no ptosis , no icterus, no phot ophobia . : ENT : normal of hearing , normal oropharynx , no Thrush . - Respiratory : Chest clear to auscultations Bilaterally , no wheezing , no Rhonchi . - Cardiovascula : regular rate and rhythem , S1 , S2 , no S3 , no S4. - Gastrointestina : abdomen soft no tenderness , bowel sounds , no organomegally . - Genitourinary : Defferred . - neurologic : Cranial nerve II to XII intact , no focal neurological deffecit . -psychatric : alert , oriented X 3 , appropriate affect , intact judgment and insight . -Lymphatic : no Lymphadenopathy . - musculoskeltal : Cervical Spine motor stregnth in the deltoid and biceps, normal right side , normal Left side motor stregnth biceps and the wrist extensors normal right side ,normal left side . motor stregnth in the triceps muscle . normal Right side , normal Left side deep tendon reflexes normal at the biceps , normal at Brachioradialis , normal at triceps. cervical facet loading test: Positive on the right side only Minimal tenderness over the right occipital nerve Spurling test negative bilaterally. Assessment and Plan Plan: 1- cervical degenerative disc disease, and cervical spondylosis with cervical facet arthropathy Status post right side C2, C3 and third occipital nerve block , and she gets excellent pain relief , patient will be scheduled to have repeat the injection and the levels mentioned previously. 2-thoracic spondylosis, patient gets good pain relief after the RFA of the thoracic median branch Time with Patient: Less than 30 PQRS Measure Charge Sheet Measure #130: Documentation of Current Meds in Medical Chart: Patient's medications documented in chart Measure #226: Tobacco Use: Screen & Cessation Intervention: Pt not a tobacco user Measure #111: Pneumonia Vaccination: Pneumococcal vaccine NOT administered or previously given Measure #47: Advance Care Plan: Advance care planning discussed & documented, pt chose/unable to give Measure #412: Opioid Treatment Agreement: No documentation of signed opioid treatment agreement Measure #408: Opioid Therapy Follow-up Evaluation: Patient had NO f/u eval minimum every 3 months during opioid therapy Measure #317: Preventitive Care & Scrn High Bld Press & F/U: Normal blood pressure, f/u not required Measure #128: Body Mass Index (BMI) Screening & Follow-up: BMI documented ABOVE normal parameters - f/u documented Measure #131: Pain Assessment & Follow-up: Pain positive & plan documented, Follow-up scheduled Measure #431: Unhealthy Alcohol Use Preventative Care & Scrn: Patient not identified as an unhealthy alcohol user PQRS Narrative: Smoking Status Never smoker Blood Pressure 103/70 Pain Intensity [Upper Shoulder 1 ] Pain Intensity [Neck] 1 Scale Used Numeric (1 - 10) Hx Alcohol Use (MH) No Home Medications: Ambulatory Orders ALPRAZolam [Xanax] 0.5 mg PO DAILY 08/24/18 DULoxetine HCL [Cymbalta] 60 mg PO DAILY 08/24/18 Naproxen [Naprosyn] 500 mg PO Q12HR 08/24/18 tiZANidine HCL [Zanaflex] 4 mg PO HS 08/24/18 Cetirizine HCl/Pseudoephedrine [Zyrtec-D Tablet] 1 each PO DAILY 07/06/19 Controlled Substance Measures - Controlled Substance Measures Is patient prescribed a controlled substance at discharge?: No
== END | disposition home or self-care (01) ==
LOC: PNWHC3 13:03
PROVIDERS: ATTEND Specialist
DX: M50.30 Other cervical disc degeneration, unspecified cervical region (principal); M47.812 Spondylosis without myelopathy or radiculopathy, cervical region; M47.814 Spondylosis without myelopathy or radiculopathy, thoracic region; M46.92 Unspecified inflammatory spondylopathy, cervical region; Z98.890 Other specified postprocedural states; Z79.1 Long term (current) use of non-steroidal anti-inflammatories (NSAID); Z79.899 Other long term (current) drug therapy
CPT/HCPCS: 99211

== ENCOUNTER 2019-12-19 08:33 | Day surgery (SDC) | payer BC ==
[2019-12-16 09:41] VITALS: BMI 28.4
[~2019-12-19 08:33] MED LIST changes: -BUPIVACAINE (PF) 0.5% 30 ML VIAL ONE; -IV FLUID CONTINUATION 800 ML IV ONE; -LACTATED RINGERS 1,000 ML IV ONE; +LIDOCAINE 1% (10MG/ML) FOR IV START INTRADERMA PRN; -LIDOCAINE 1% 20 ML VIAL (10MG/ML) FOR IV START INTRADERMA ONE; -MIDAZOLAM 2 MG/2 ML VIAL ONE; -fentaNYL (PF) 50 MCG/ML 2 ML AMP ONE; -methylPREDNISolone ACETATE 40 MG/ML 1 ML VIAL ONE
[2019-12-19 08:45] VITALS: TEMP 97.9
[2019-12-19] MEDS ORDERED: fentaNYL (PF) 50 MCG/ML 2 ML AMP ONE (08:52)
[2019-12-19] MEDS ORDERED: DEXAMETHASONE SOD PHOSPHATE 10 MG/ML 1 ML VIAL ONE (08:52)
[2019-12-19] MEDS ORDERED: MIDAZOLAM 2 MG/2 ML VIAL ONE (08:52)
[2019-12-19] MEDS ORDERED: BUPIVACAINE (PF) 0.5% 30 ML VIAL ONE (08:52)
--- NOTE | 2019-12-19 09:16 | P.PCN ---
Date of Procedure: 12/19/19 Preoperative Diagnosis: Cervicogenic headache Postoperative Diagnosis: Same as above Procedure(s) Performed: Right cervical medial branch block at C2 and C3 levels and third occipital nerve block on the right side under fluoroscopic guidance Anesthesia: other (IV moderate conscious sedation with Versed and fentanyl and local anesthetic of lidocaine 1%) Surgeon: Maria L Schafer Pathology: none sent Condition: stable Disposition: PACU Description of Procedure: The patient was seen and identified in the preoperative area. Risks, benefits, complications, and alternatives were discussed with the patient, the patient agreed to proceed with the procedure and signed the consent. IV was started. Vital signs remained stable throughout the procedure. Patient was taken to the OR and time out was completed. The patient was placed in the supine position on the procedure table. . The cervical area was prepped with chloraprep and draped in the usual sterile fashion. Critical pause was taken. Vital signs were closely monitored during the procedure. Conscious sedation was used during the procedure to decrease patients anxiety. The lateral view of fluoroscopy was used to identify the C2 and C3 trapezoid shaped cervical articular pillars at the target points were the center of the articular pillars . I used 25-gauge 3-1/2 inch Quincke spinal needle to go through the skin after localizing it with lidocaine 1% and to contact the bone at the above-mentioned target point then the AP view of fluoroscopy was used to verify needle position at the waist of the C2 and C3 vertebral bodies laterally. For the 3rd occipital nerve the target point was at the center of the C2-C3 joint . after contacting bone at the target points mentioned above I injected 0.5 MLS of a solution made up off 2 ml of preservative-free Bupivacaine 0.5% mixed with Dexamethasone 10 mg and half ml of the mixture was injected at each level after negative aspiration for blood and CSF. [place] were then removed intact the same procedure was repeated on the left side. COMPLICATIONS: No acute complications. COMMENTS: A copy of the needle placement was saved to the fluoroscopy machine at the radiology department DISPOSITION / PLANS: The patient was placed in a supine position and transferred to the recovery area in a stable condition for observation and was discharged from the recovery room after meeting discharge criteria. Home discharge instructions given to the patient by the staff. The patient was reexamined prior to discharge. The patient will be scheduled for a repeat of this injection in 2- 4 weeks.
[2019-12-19] MEDS ORDERED: IV FLUID CONTINUATION 1,000 ML IV ONE (09:18)
--- NOTE | 2019-12-19 09:25 | FL ---
EXAMINATION TYPE: FL guided pain mgmt statistic DATE OF EXAM: 12/19/2019 HISTORY: Fluoroscopy time 6 seconds of fluoroscopy provided. IMPRESSION: 1. Fluoroscopy time.
[2019-12-19 09:36] VITALS: BP 123/82; PULSE 66; RESP 18
== END 2019-12-19 09:54 | disposition home or self-care (01) ==
LOC: ORPAIN 08:33
PROVIDERS: ATTEND Anesthesiology
DX: G44.89 Other headache syndrome (principal)
CPT/HCPCS: 81025; 64450; 64490; 64491; J2250; J1100; J3010; 99152

== ENCOUNTER → 2020-07-25 | Outpatient (CLI) | payer BC ==
[2020-07-25 09:23] VITALS: BP 142/92; PULSE 114; RESP 18; TEMP 98.7
--- NOTE | 2020-07-25 09:58 | P.PN ---
Subjective Progress Note Date: 07/25/20 This is a follow-up visit for this 35 year old female with a chronic history of severe neck and midback pain diagnosed with cervical degenerative disc disease, cervical spondylosis ,as well as thoracic spondylosis, most recently we have done cervical epidural steroid injection in September 2019. Unfortunately, she did not get significant relief from this procedure. Recently we did right side medial branch block cervical area at Right C2, C3, and third occipital nerve she gets excellent pain relief of her neck pain and headache, VAS was 8/10 before the block dropped to 0 after the block the patient relief was for was for short- term. Currently she takes naproxen, Zanaflex, Cymbalta for pain. She is also complaining of back pain on the left side in the upper thoracic area Review of systems is negative for chest pain, shortness of breath, new onset weakness, numbness/tingling, abdominal pain, malaise, fever, chills, homicidal or suicidal ideation, or bowel or bladder incontinence. She does endorse some night sweats. Objective - Vital Signs Vital signs: Vital Signs Temp 98.7 F 07/25/20 09:20 Pulse 114 H 07/25/20 09:20 Resp 18 07/25/20 09:20 BP 142/92 07/25/20 09:20 Pulse Ox 98 07/25/20 09:20 - Exam -Constitutiona : Cooperative , not in acute distress . -HEENT : nech : supple , no Lymphadenopathy , normal thyroid size . : eyes : no ptosis , no icterus, no photophobia . : ENT : normal of hearing , normal oropharynx , no Thrush . - Respiratory : Chest clear to auscultations Bilaterally , no wheezing , no Rhonchi . - Cardiovascula : regular rate and rhythem , S1 , S2 , no S3 , no S4. - Gastrointestina : abdomen soft no tenderness , bowel sounds , no organomegally . - Genitourinary : Defferred . - neurologic : Cranial nerve II to XII intact , no focal neurological deffecit . -psychatric : alert , oriented X 3 , appropriate affect , intact judgment and insight . -Lymphatic : no Lymphadenopathy . - musculoskeltal : Cervical Spine motor stregnth in the deltoid and biceps, normal right side , normal Left side motor stregnth biceps and the wrist extensors normal right side ,normal left side . motor stregnth in the triceps muscle . normal Right side , normal Left side deep tendon reflexes normal at the biceps , normal at Brachioradialis , normal at triceps. cervical facet loading test: Positive on the right side only Minimal tenderness over the right occipital nerve Spurling test negative bilaterally. Thoracic spine Positive facet loading test rustic area mainly on the left side Multiple trigger point identified in the left- sided thoracic paraspinal muscles Assessment and Plan Plan: Assessment and melany 1- cervical degenerative disc disease, and cervical spondylosis with cervical facet arthropathy Status post right side C2, C3 and third occipital nerve block ,x2 and she gets excellent pain relief , patient will be scheduled to have RFA medial branch Cervical area right side 2-thoracic spondylosis, patient gets good pain relief after the RFA of the thoracic median branch 3-myofascial pain syndrome thoracic area; patient could benefit from trigger point injections left-sided thoracic paraspinal muscles Time with Patient: Less than 30 PQRS Measure Charge Sheet Measure #130: Documentation of Current Meds in Medical Chart: Patient's medications documented in chart Measure #226: Tobacco Use: Screen & Cessation Intervention: Pt not a tobacco user Measure #111: Pneumonia Vaccination: Pneumococcal vaccine NOT administered or previously given Measure #47: Advance Care Plan: Advance care planning discussed & documented, pt chose/unable to give Measure #412: Opioid Treatment Agreement: No documentation of signed opioid treatment agreement Measure #408: Opioid Therapy Follow-up Evaluation: Patient had NO f/u eval minimum every 3 months during opioid therapy Measure #317: Preventitive Care & Scrn High Bld Press & F/U: Elevated blood pressure 142/92, patient will follow up with the primary care Measure #128: Body Mass Index (BMI) Screening & Follow-up: BMI documented ABOVE normal parameters - f/u documented Measure #131: Pain Assessment & Follow-up: Pain positive & plan documented, Follow-up scheduled Measure #431: Unhealthy Alcohol Use Preventative Care & Scrn: Patient not identified as an unhealthy alcohol user PQRS Narrative: Time with Patient: Less than 30
== END | disposition home or self-care (01) ==
LOC: PNWHC3 09:08
PROVIDERS: ATTEND Specialist
DX: M50.30 Other cervical disc degeneration, unspecified cervical region (principal); M47.812 Spondylosis without myelopathy or radiculopathy, cervical region; M47.814 Spondylosis without myelopathy or radiculopathy, thoracic region; M79.18 Myalgia, other site
CPT/HCPCS: 99211

== ENCOUNTER 2020-08-17 09:42 | Day surgery (SDC) | payer BC ==
[2020-08-15 15:43] VITALS: BMI 30.4
[~2020-08-17 09:42] MED LIST changes: -LIDOCAINE 1% (10MG/ML) FOR IV START INTRADERMA PRN
[2020-08-17 10:13] VITALS: RESP 16; TEMP 98.5
[2020-08-17] MEDS ORDERED: ROPIVACAINE 5MG/ML 20ML VIAL ONE (10:51)
[2020-08-17] MEDS ORDERED: LIDOCAINE 1% INJ 10MG/ML (20 ML MDV) ONE (10:51)
[2020-08-17] MEDS ORDERED: DEXAMETHASONE SOD PHOSPHATE 10 MG/ML 1 ML VIAL ONE (10:51)
[2020-08-17] MEDS ORDERED: fentaNYL (PF) 50 MCG/ML 2 ML AMP ONE (10:51)
[2020-08-17] MEDS ORDERED: MIDAZOLAM 2 MG/2 ML VIAL ONE (10:51)
--- NOTE | 2020-08-17 11:29 | P.PCN ---
Date of Procedure: 08/17/20 Surgeon: Maria L Schafer Pathology: none sent Condition: stable Disposition: PACU Description of Procedure: PREOPERATIVE DIAGNOSIS: Cervicogenic headache, and thoracic myofascial pain POSTOPERATIVE DIAGNOSIS: Same as above PROCEDURES: Radiofrequency thermocoagulation, C2,C3 and third occipital nerve on the right side. Trigger point injection of the thoracic paravertebral musculature on the left side of the spine. ANESTHESIA: Local with 1% lidocaine; IV sedation by the anesthesia Department EBL: Minimal PROCEDURE INDICATION: The patient with neck pain secondary to cervical arthropathy who had more than 50% relief of her pain with previous diagnostic cervical medial branch block. PROCEDURE DESCRIPTION / TECHNIQUE: The patient was seen and identified in the preoperative area. Risks, benefits, complications, and alternatives were discussed with the patient, the patient agreed to proceed with the procedure and signed the consent. IV was started. Vital signs remained stable throughout the procedure. Patient was taken to the OR and time out was completed. The patient was placed in the prone position on the procedure table. A pillow was placed under the patients chest to increase the cervical interlaminar space. The cervical area was prepped and draped in the usual sterile fashion. Critical pause was taken. Vital signs were closely monitored during the procedure. Conscious sedation was used during the procedure to decrease patients anxiety. Using cross-table lateral fluoroscopy, the center of the trapezoid-shaped cervical pillars of C2,C3 and the center of the joint line between them were identified, marked, and localized with 1% lidocaine. Subsequently, a 20 [id number] radiofrequency cannula with a 10-mm active tip was advanced guided by fluoroscopy to the target points mentioned above. . Each site then underwent motor testing at 2 Hz and 0 to 3 volt with local stimulation, but no radicular symptoms . Thereafter the above-mentioned sites underwent radiofrequency thermocoagulation at 80 degrees celsius for 90 seconds after injecting 0.5 ml of PF lidocaine 1%. After thermocoagulation, 1 ml of the block solution containing Dexamethasone 10 mg and 2 mL of preservative-free normal saline was injected at each levels after negative aspiration of CSF and blood and with no paresthesias. Cannulas were retracted. Skin was cleansed and bandages were applied. I then turned my attention into doing the trigger point injection on the left side of the thoracic spine around the T3-T4 level. Skin was prepped with DuraPrep and I used 25-gauge 1-1/2 inch needle to go through the skin and into the thoracic paravertebral musculature I then injected 1 mL of ropivacaine in each point 2 points in total. COMPLICATIONS: No acute complications. COMMENTS: DISPOSITION / PLANS: The patient was placed in a supine position and transferred to the recovery area in a stable condition for observation and was discharged from the recovery room after meeting discharge criteria. Home discharge instructions given to the patient by the staff. The patient was reexamined prior to discharge.
[2020-08-17] MEDS ORDERED: IV FLUID CONTINUATION 500 ML IV ONE (11:39)
--- NOTE | 2020-08-17 11:40 | FL ---
EXAMINATION TYPE: FL guided pain mgmt statistic DATE OF EXAM: 08/17/2020 HISTORY: Fluoroscopy time 19 seconds of fluoroscopy provided. IMPRESSION: 1. Fluoroscopy time.
[2020-08-17 12:03] VITALS: BP 147/84; PULSE 77
== END 2020-08-17 12:27 | disposition home or self-care (01) ==
LOC: ORPAIN 09:42
PROVIDERS: ATTEND Anesthesiology
DX: M79.18 Myalgia, other site (principal); R51.9 Headache, unspecified
CPT/HCPCS: 64640; 64633; 20553; 81025; J2250; J1100; J2001; J3010; J2795; 64634

== ENCOUNTER → 2020-09-12 | Outpatient (CLI) | payer BC ==
[2020-09-12 09:57] VITALS: BP 132/89; PULSE 88; RESP 18; TEMP 98.6
--- NOTE | 2020-09-12 10:24 | P.PN ---
Subjective Progress Note Date: 09/12/20 This is a follow-up visit for this 34 year old female with a chronic history of severe neck, and midback pain diagnosed with cervical degenerative disc disease, cervical spondylosis as well as thoracic spondylosis. Recently we did RFA right side medial branch block cervical area at Right C2, C3, and third occipital nerve , in October 2019 we did RFA of the left side thoracic medial branch at T5, T6, T7 each provided her excellent pain relief of her low mid back pain. Currently she takes naproxen, Zanaflex, Cymbalta for pain. Currently she is complaining of severe mid back pain increases with any movement Review of systems is negative for chest pain, shortness of breath, new onset weakness, numbness/tingling, abdominal pain, malaise, fever, chills, homicidal or suicidal ideation, or bowel or bladder incontinence. She does endorse some night sweats. Objective - Vital Signs Vital signs: Vital Signs Temp 98.6 F 09/12/20 09:50 Pulse 88 09/12/20 09:50 Resp 18 09/12/20 09:50 BP 132/89 09/12/20 09:50 Pulse Ox 98 09/12/20 09:50 - Exam -Constitutiona : Cooperative , not in acute distress . -HEENT : nech : supple , no Lymphadenopathy , normal thyroid size . : eyes : no ptosis , no icterus, no photophobia . - neurologic : Cranial nerve II to XII intact , no focal neurological deffecit . -psychatric : alert , oriented X 3 , appropriate affect , intact judgment and insight . -Lymphatic : no Lymphadenopathy . - musculoskeltal : Cervical Spine motor stregnth in the deltoid and biceps, normal right side , normal Left side motor stregnth biceps and the wrist extensors normal right side ,normal left side . motor stregnth in the triceps muscle . normal Right side , normal Left side Thoracic spine= Positive facet loading test on the thoracic area on the left side Assessment and Plan Plan: Assessment and plan 1- cervical degenerative disc disease, and cervical spondylosis with cervical facet arthropathy Status post RFA right side C2, C3 and third occipital nerve block . 2-thoracic spondylosis, patient gets good pain relief after the RFA of the thoracic median branch done in October 2019 Patient could benefit from repeat RFA of the medial branch thoracic area on the left side at T5, T6, T7 Time with Patient: Less than 30 PQRS Measure Charge Sheet Measure #130: Documentation of Current Meds in Medical Chart: Patient's medications documented in chart Measure #226: Tobacco Use: Screen & Cessation Intervention: Pt not a tobacco user Measure #111: Pneumonia Vaccination: Pneumococcal vaccine NOT administered or previously given Measure #47: Advance Care Plan: Advance care planning discussed & documented, pt chose/unable to give Measure #412: Opioid Treatment Agreement: No documentation of signed opioid treatment agreement Measure #408: Opioid Therapy Follow-up Evaluation: Patient had NO f/u eval minimum every 3 months during opioid therapy Measure #317: Preventitive Care & Scrn High Bld Press & F/U: Normal blood pressure, f/u not required Measure #128: Body Mass Index (BMI) Screening & Follow-up: BMI documented ABOVE normal parameters - f/u documented Measure #131: Pain Assessment & Follow-up: Pain positive & plan documented, Follow-up scheduled Measure #431: Unhealthy Alcohol Use Preventative Care & Scrn: Patient not identified as an unhealthy alcohol user PQRS Narrative: Time with Patient: Less than 30
== END | disposition home or self-care (01) ==
LOC: PNWHC3 09:38
PROVIDERS: ATTEND Specialist
DX: M50.30 Other cervical disc degeneration, unspecified cervical region (principal); M47.812 Spondylosis without myelopathy or radiculopathy, cervical region; M47.814 Spondylosis without myelopathy or radiculopathy, thoracic region
CPT/HCPCS: 99211

== ENCOUNTER → 2020-10-12 | Day surgery (SDC) | payer BC ==
[2020-10-08 15:00] VITALS: BMI 30.2
[~2020-10-12] MED LIST changes: +LIDOCAINE 1% INJ 10MG/ML (20 ML MDV) ONE; +MIDAZOLAM 2 MG/2 ML VIAL ONE; +ROPIVACAINE 5MG/ML 20ML VIAL ONE; +TRIAMCINOLONE ACETONIDE 40 MG/ML 1 ML VIAL ONE; +fentaNYL (PF) 50 MCG/ML 2 ML AMP ONE
[2020-10-12 12:17] VITALS: TEMP 98.4
--- NOTE | 2020-10-12 13:02 | P.PCN ---
Date of Procedure: 10/12/20 Surgeon: Maria L Schafer Pathology: none sent Condition: stable Disposition: PACU Description of Procedure: Preoperative Diagnosis: Thoracic spondylosis without myelopathy Postoperative Diagnosis: Same as above Procedure(s) Performed: Left thoracic medial branch radiofrequency ablation under fluoroscopic guidance for the medial branches T5, the C6, and T 7 Anesthesia: other (Moderate IV conscious sedation with fentanyl and Versed) Surgeon: Maria L Schafer Pathology: none sent Condition: stable Disposition: PACU Description of Procedure: The patient was seen in preoperative holding area consent was obtained. The painful area on the right side of her thoracic spine was marked. The patient then was brought into the procedure room and placed in prone position. ASA monitors applied. Skin was prepped with DuraPrep and draped in a sterile manner. Lidocaine 1% was used to numb the skin up at the target points that were medial to the superior lateral angle of each transverse process. I used 18 -gauge 100 mm with 10 mm curved active tip radio frequency ablation needles. After contacting bone at the target points mentioned above I withdrew the needles by 1 or 2 mm and then motor stimulation showed only local twitches of these needles with no radiation around the chest wall. I then prepared a solution of 2 MLS T0.5 percent +40 mg of Kenalog were injected 1 mL in each needle. After that. Radiofrequency ablation started for 90 seconds at 80C. The patient tolerated procedure well. [place] were taken out and bandages were applied to the skin. I will order a chest x-ray to rule out pneumothorax in the PACU .
[2020-10-12 13:16] VITALS: BP 130/78; PULSE 77; RESP 17
--- NOTE | 2020-10-12 13:16 | FL ---
EXAMINATION TYPE: FL guided pain mgmt statistic DATE OF EXAM: 10/12/2020 HISTORY: Fluoroscopy time 23 seconds of fluoroscopy provided. IMPRESSION: 1. Fluoroscopy time.
--- NOTE | 2020-10-12 13:28 | XR ---
EXAMINATION TYPE: XR chest 1V portable DATE OF EXAM: 10/12/2020 COMPARISON: 11/10/2018 INDICATION: Routine post procedure TECHNIQUE: Single frontal view of the chest is obtained. FINDINGS: The heart size is normal. The pulmonary vasculature is normal. The lungs are clear. No pneumothorax is evident. IMPRESSION: 1. No acute pulmonary process. 2. No pneumothorax
--- NOTE | 2020-10-16 11:23 | CDI ---
Date: 10.16.20 CDS/Document Improvement Specialist Name: Debra Patel Phone: If any questions, call Kayla Laughlin [facility] Specialist at [phone] Patient Name: Jeaneth Arevalo Admit Date 10.12.20 Discharge Date: 10.12.20 ATTENTION: The [facility] Coding Staff appreciate your assistance in clarifying documentation. Please respond to the clarification below the line at the bottom and electronically sign. The [facility] Coding staff will review the response and follow-up if needed. Please note: Queries are made part of the Legal Health Record. If you have any questions, please contact the [facility] Specialist. Dear Dr. Schafer In order to code to the greatest specificity and for the greatest reimbursement I need the following information: Please clarify which medial branches had the radiofrequency ablation, on the procedure performed in the op report it has medial branches T5, the T6, and the T7. Thank you for your kind consideration. MTDD
== END ==
LOC: ORPAIN 11:52
PROVIDERS: ATTEND Anesthesiology
DX: M47.814 Spondylosis without myelopathy or radiculopathy, thoracic region (principal); F41.9 Anxiety disorder, unspecified; M79.7 Fibromyalgia; M54.2 Cervicalgia; Z79.899 Other long term (current) drug therapy; Z79.1 Long term (current) use of non-steroidal anti-inflammatories (NSAID)
CPT/HCPCS: 81025; 71045; 64633; 64634; J2250; J3301; J2001; J3010; J2795

== ENCOUNTER → 2020-11-14 | Outpatient (CLI) | payer BC ==
[2020-11-14 11:24] VITALS: PULSE 81; RESP 18
[2020-11-14 11:28] VITALS: BP 162/95; TEMP 98.6
--- NOTE | 2020-11-14 11:28 | P.PN ---
Subjective Progress Note Date: 11/14/20 Jeaneth is a 35-year-old female presents today for follow-up. She reports that her back pain significantly improved after the radiofrequency ablation. She has 01 out of 10 pain. She also complains of a left pinky numbness which is over the medial aspect of the left pinky. She reports that she's had this small area of numbness for the past 2 weeks. There is been no trauma to the hand. She feels that there is a small area right above the pinky that if she pushes on causes a little numbness there. There is no weakness in the hand. There is no numbness anywhere else. There is no lower extremity weakness numbness or tingling. There is no upper extremity numbness tingling or weakness. No chest pain noted. Objective - Vital Signs Vital signs: Vital Signs Temp 98.7 F 11/14/20 11:22 Pulse 81 11/14/20 11:22 Resp 18 11/14/20 11:22 BP 162/59 11/14/20 11:22 Pulse Ox 96 11/14/20 11:22 - Exam PHYSICAL EXAM: Constitutional: Awake and alert no distress Cardiovascular exam: Regular rate, no lower extremity edema, palpable pulses bilaterally Respiratory exam: No audible wheezing, no accessory muscle usage Abdominal exam: Soft nontender Muscular skeletal exam: - Cervical spine: Nontender to palpation bilaterally. Range of motion is not limited. Spurling is negative bilateral. Facet loading is negative bilaterally - Lumbar spine: Preserved lumbar lordosis. No changes in skin. Nontender palpation bilateral. Patient has full range of motion in flexion and extension as well as lateral sidebending. Straight leg raise is negative. Facet loading is negative. Nontender over the SI joints. TAMIKA Negative, Gaenselons negative, SI Joint compression negative. Neuro exam: Normal sensation bilateral upper and lower extremities. Deep tendon reflexes are 2+ bilaterally. Mcneal's is negative left pinky finger decreased sensation over the lateral aspect. Psychiatric exam: Cooperative, good insight Assessment and Plan Assessment: Thoracic spondylosis without myelopathy Fifth digit neuropathy Plan: At this point patient will follow up as needed. I recommended she see a hand doctor to evaluate for the numbness in the pinky finger I have spent 25 minutes on patient care today. The time was used to review the medical records including relevant urine studies and Prescription history (MAPs), review of the available imaging, evaluation and examination of the patient, coordination of care with the medical staff and if applicable referring physicians, as well as creation of the medical record.
== END | disposition home or self-care (01) ==
LOC: PNWHC3 11:15
PROVIDERS: ATTEND Hospitalist
DX: M47.814 Spondylosis without myelopathy or radiculopathy, thoracic region (principal); G62.9 Polyneuropathy, unspecified
CPT/HCPCS: 99211

== ENCOUNTER → 2021-12-12 | Outpatient (CLI) | payer BC ==
[2021-12-12 11:16] VITALS: BP 132/89; PULSE 82; RESP 18; TEMP 98.5
--- NOTE | 2021-12-12 11:36 | P.PN ---
Subjective Progress Note Date: 12/12/21 Principal diagnosis: A 36 yr old female with a history of severe and chronic neck pain secondary to apical degenerative disc diseases and spondylosis with facet arthropathy presents today for neck pain progressively worsening 20 years. Pain is 8 out of 10 in intensity, constant, pressure, tight, grinding sensation in the base of the neck that radiates up and down the cervical spine as well as to her left scapula pain is provoked with extension of the cervical spine and lifting with upper extremities. Pain is alleviated with medications, topicals, injections, heat application, physical therapy years ago, home based stretching regimen, massage, repositioning and rest. Patient is currently on Zanaflex, Naproxen. Patient denies any side effects of the medication(s), denies excessive drowsiness or sleepiness, denies suicidal ideation and reports that the current pain medication is helping to control the pain and improve activities of daily living. Patient denies any motor or sensory deficits. Patient denies any fever or night sweats, denies any change in the bowel movements or urination. Physical Examination: -Constitutional: Cooperative. Not in acute distress . -HEENT: Neck is supple. No lymphadenopathy. No thyromegaly. Normal thyroid size. Eyes: No ptosis , no icterus, no photophobia. ENT: No auditory deficits. Normal oropharynx. No Thrush. - Respiratory: Chest clear to auscultations bilaterally. No wheezing. No rhonchi. - Cardiovascular: Regular rate and rhythm. S1 / S2 , no S3 , no S4. - Gastrointestinal: Abdomen soft no tenderness. Bowel sounds positive in all four quadrants. No organomegaly. - Genitourinary: Deferred. - Neurologic: Cranial nerve II to XII intact. No focal neurological deficits. - Psychatric: Alert & oriented x 3. Matching mood & appropriate affect. Judgment and insight intact. - Lymphatic: No Lymphadenopathy. - Musculoskeletal: Cervical spine: Muscle bulk/ tone/ strength in the bilateral upper extremities normal. Vertebral body tenderness over C7. +Muscle spasms over BL C5-C7 Facet loading test cervical area positive. Lumbar spine: Motor bulk/ tone/ strength lower extremities , thigh and legs : 5/5 Deep tendon reflexes : Normal Knee Jerk. Normal Ankle Jerk . Vertebral body tenderness to palpation over Lumbar Facet Loading Test positive Straight Leg Raise: positive at 30 degrees right side/ left side Gaenslen's Test positive Sacral spine : Severe tenderness over the Sacroiliac joint: right side / left side Range of motion: Flexion of the lumbar spine <60 degrees Range of motion: Extension of the lumbar spine <20 degrees Gaenslen's Test positive Vida test: positive right side / left side Imaging: MRI of the cervical spine without contrast from 05/03/19 reviewed. Assessment and plan: Chronic neck pain secondary to cervical degenerative disc disease , spondylosis with facet arthropathy without myelopathy Recommendation of LEONARD C7-T1. May need a series of injections, up to 3 within a six-month period, to obtain optimal pain relief. Risks, benefits of procedure discussed and patient verbalized understanding. Nice anticoagulants use. Denies medical history of diabetes mellitus. All patient questions answered MAPS reviewed and it was appropriate. I have spent 31 minutes on patient care today. Dr Rosales was available by phone for the evaluation of this patient. The time was used to review the medical records including relevant urine studies and Prescription history (MAPs), review of the available imaging, evaluation and examination of the patient, coordination of care with the medical staff and if applicable referring physicians, as well as creation of the medical record Objective - Vital Signs Vital signs: Vital Signs Temp 98.5 F 12/12/21 11:07 Pulse 82 12/12/21 11:07 Resp 18 12/12/21 11:07 BP 132/89 12/12/21 11:07 Pulse Ox PQRS Measure Charge Sheet Mode of Arrival: Ambulatory - Pain Location Left Upper Neck Non-Pharmacological Interventions: Massage, Stretching Pharmacological Interventions: Block, PRN Medication PQRS Narrative: Smoking Status Never smoker Blood Pressure 132/89 Pain Intensity [Left Upper 8 Neck] Scale Used Numeric (1 - 10) Hx Alcohol Use (MH) No Home Medications: Ambulatory Orders ALPRAZolam [Xanax] 0.5 mg PO DAILY 08/24/18 DULoxetine HCL [Cymbalta] 90 mg PO DAILY 08/24/18 Naproxen [Naprosyn] 500 mg PO Q12HR 08/24/18 tiZANidine HCL [Zanaflex] 4 mg PO HS 08/24/18
== END ==
LOC: PNWHC3 10:21
PROVIDERS: ATTEND Physician Assistant Medical
DX: M50.30 Other cervical disc degeneration, unspecified cervical region (principal); M47.812 Spondylosis without myelopathy or radiculopathy, cervical region; G89.29 Other chronic pain
CPT/HCPCS: 99211

== ENCOUNTER 2022-01-28 11:40 | Day surgery (SDC) | payer BC, OTHER ==
[~2022-01-28 11:40] MED LIST changes: -LIDOCAINE 1% INJ 10MG/ML (20 ML MDV) ONE; -MIDAZOLAM 2 MG/2 ML VIAL ONE; -ROPIVACAINE 5MG/ML 20ML VIAL ONE; -TRIAMCINOLONE ACETONIDE 40 MG/ML 1 ML VIAL ONE; -fentaNYL (PF) 50 MCG/ML 2 ML AMP ONE
[2022-01-28] MEDS ORDERED: LIDOCAINE 1% (10MG/ML) FOR IV START INTRADERMA PRN (11:53)
[2022-01-28] MEDS ORDERED: LACTATED RINGERS 1,000 ML IV SCH (11:53)
[2022-01-28 12:01] VITALS: TEMP 97.4
[2022-01-28] MEDS ORDERED: IOPAMIDOL M200 10 ML VIAL ONE (12:04)
[2022-01-28] MEDS ORDERED: DEXAMETHASONE SOD PHOSPHATE 10 MG/ML 1 ML VIAL ONE (12:04)
[2022-01-28] MEDS ORDERED: fentaNYL (PF) 50 MCG/ML 2 ML AMP ONE (12:04)
[2022-01-28] MEDS ORDERED: MIDAZOLAM 2 MG/2 ML VIAL ONE (12:04)
--- NOTE | 2022-01-28 12:23 | P.PCN ---
Date of Procedure: 01/28/22 Description of Procedure: Pre- and Post-operative Diagnosis: Cervical radiculopathy Procedure: C7-T1 Inter-Laminar Cervical Epidural Steroid Injection under biplanar fluoroscopy Surgeon: Raven Cesar Anesthesia: Local: 1% Lidocaine, IV sedation : Midazolam, and fentanyl. Complications: None. Estimated blood loss: None Specimens removed: None Fluoroscopic image: saved to electronic medical records. Indications for Procedure: The patient has been suffering from neck pain and pain radiating to the upper extremity . Inadequate pain control with pharmacologic regimen. An inter-laminar approach cervical epidural steroid injection was scheduled for the patient. Procedure and Findings: The patient was seen and examined in the holding area. The written informed consent was obtained after explaining the risks, benefits, alternatives of the procedure to the patient. The patient was brought to the procedure room and was placed in the prone position on the operating table. A pillow was placed under the upper chest. Standard anesthesia monitoring was done through out the procedure. Timeout was completed. The skin preparation was done with ChloraPrep 1 and draping was done in usual sterile fashion. Sterile technique was observed throughout the procedure. Under fluoroscopic guidance, the C7-T1 inter-laminar space was identified. 3 ml of 1% Lidocaine was injected with a 25 gauge needle to achieve adequate local anesthesia of the skin and subcutaneous tissue. A 18 gauge, 3.5 inch Tuohy type epidural needle was placed and gradually advanced up to the epidural space using loss of resistance technique and fluoroscopic guidance. Lateral, oblique fluoroscopic views confirm the needle position. No paresthesia was noted. A negative aspiration was confirmed and then 1 ml of Isovue-200 was injected. A good dye spread was seen in the epidural space and it was negative for any intrathecal, intraneural or intravascular spread. A total of 6 ml solution containing 20 mg Dexamethasone, and 5 ml preservative-free Normal Saline was injected slowly with intermittent aspiration. The needle was removed intact, area was cleaned and bandage was applied. Disposition : The patient tolerated the procedure very well. The patient was transferred to the recovery room and remained stable until discharged home. The patient was given detailed discharge instructions for bleeding, infection, increased pain at the injection site, and was advised to seek immediate medical attention should significant side effects develop. The patient will be followed up with our Pain Clinic within 4 weeks for follow-up visit. note: 20-gauge 3.5 inch Tuohy epidural needle is not available, as they are backordered
[2022-01-28] MEDS ORDERED: IV FLUID CONTINUATION 1,000 ML IV ONE (12:25)
[2022-01-28 12:47] VITALS: RESP 16
[2022-01-28 12:48] VITALS: BP 124/80; PULSE 80
--- NOTE | 2022-01-28 13:23 | FL ---
Fluoroscopy HISTORY: Pain 8 seconds fluoroscopy time supplied to the referring clinician. 2 intraoperative C-arm images docume nt the procedure. See dictated report from anesthesia.
--- NOTE | 2022-02-03 16:22 | CDI ---
[facility] [address] [place] [address] Date: 02/03/2022 04:14:00 PM From: Minal Montoya Phone: Admit Date: 01/28/2022 11:40:00 AM Patient Name: Jeaneth Arevalo Visit Number: [id number] Discharge Date: Payor: [facility] Dear Dr. Alan, conscious sedation Please Provide clarification as to the type of anesthesia provided with this procedure. MAC/unconscious or Moderate Sedation/conscious/. Please respond below the ilne at the bottom. Thank you for your kind consideration, MTDD
== END 2022-01-28 13:03 | disposition home or self-care (01) ==
LOC: ORPAIN 11:40
DX: M54.2 Cervicalgia (principal); M54.6 Pain in thoracic spine; M54.12 Radiculopathy, cervical region; M19.90 Unspecified osteoarthritis, unspecified site; M79.7 Fibromyalgia; Z79.1 Long term (current) use of non-steroidal anti-inflammatories (NSAID); Z79.899 Other long term (current) drug therapy
CPT/HCPCS: 81025; 62321; J2250; J1100; J3010; Q9966; 99152

== ENCOUNTER → 2022-02-24 | Outpatient (CLI) | payer BC, OTHER ==
--- NOTE | 2022-02-24 11:38 | P.PN ---
Subjective Progress Note Date: 02/24/22 This is a 36-year-old lady with history of chronic neck pain on the right side of her neck in the suboccipital area. This pain gets worse by neck movements. The patient had cervical epidural steroid injection recently which has not helped her pain. The patient states that the only procedure which helped her pain was the right Ablation which she had in August 2020. Patient denies new-onset weakness, bowel/bladder incontinence, or any other signs or symptoms of cauda equina syndrome. There are no signs of acute intoxication, and no indications of medication diversion or overuse. In addition to above, 13-point review of systems is also negative for chest pain, shortness of breath, changes in vision, changes in hearing, new onset weakness, abdominal pain, diarrhea, extreme fatigue, malaise, fever, skin changes, homicidal or suicidal ideation, or bowel or bladder incontinence. Vital Signs: Reviewed in EMR Gen: AAOx3, NAD HEENT: PERRLA,hearing grossly normal Pulm: resp unlabored Neck: supple, trachea midline Neuro exam of the lower extremities: Within normal limits Straight leg raising test: Naveen's test: Range of motion of the lumbar spine: Facet loading test: Tenderness in the paravertebral musculature: Mild tenderness in the right suboccipital area Neuro: CN II-XII grossly intact, Imaging: Reviewed in EMR/chart Assessment: Cervical spondylosis without myelopathy Cervicogenic pain Myofascial pain Plan: 1. Explanation: When patients on opioids, opioid and psychological risk scores were reviewed. Diagnoses, prognoses, and multiple treatment options including but not limited to physical therapy, interventional therapies, adjuvant medical therapies, narcotic medication therapies, and surgery were discussed with the patient and all questions were answered to the patient's satisfaction. 2. Opioid agreement:When patients are prescribed opoids through our clinic, opioid agreement is signed with the patient and the patient is warned not to use opioids while driving or before driving and not to combine opioids with benzodi azepines or alcohol. 3. Counseling: When patient is smoking or obese, the patient was counseled extensively on SMOKING CESSATION, BODY MASS INDEX, EXERCISE. Specifically, the patient was instructed regarding the importance of smoking cessation, obesity, and exercise in the context of both chronic pain and overall health. 4. Procedures: We will schedule for right cervical medial branch RFA for C2-C3 and third occipital nerve 5. Consultations: None 6. Investigations: None 7. Medications: Prescribed today 8. Disposition: Proceed with the above-mentioned procedure as soon as possible 9. Maps were reviewed and were appropriate.
[2022-02-24 12:17] VITALS: BP 132/89; PULSE 78; RESP 18; TEMP 98.4
== END ==
LOC: PNWHC3 11:12
PROVIDERS: ATTEND Anesthesiology
DX: M47.812 Spondylosis without myelopathy or radiculopathy, cervical region (principal); M79.18 Myalgia, other site
CPT/HCPCS: 99211

== ENCOUNTER 2022-04-11 08:40 | Day surgery (SDC) | payer BC ==
[2022-04-09 08:41] VITALS: BMI 28.8
[2022-04-11 09:04] VITALS: TEMP 97.2
[2022-04-11] MEDS ORDERED: fentaNYL (PF) 50 MCG/ML 2 ML AMP ONE (09:43)
[2022-04-11] MEDS ORDERED: ROPIVACAINE 5 MG/ML 20 ML AMPULE ONE (09:43)
[2022-04-11] MEDS ORDERED: LIDOCAINE 2% INJ 20 MG/ML (2 ML VIAL) ONE (09:43)
[2022-04-11] MEDS ORDERED: MIDAZOLAM 2 MG/2 ML VIAL ONE (09:43)
--- NOTE | 2022-04-11 09:46 | P.PCN ---
Date of Procedure: 04/11/22 Procedure(s) Performed: Right cervical radiofrequency ablation of C2-C3 as well as third occipital nerve Description of Procedure: PREOPERATIVE DIAGNOSIS: Cervical spondylosis without myelopathy POSTOPERATIVE DIAGNOSIS: Cervical spondylosis without myelopathy PROCEDURES: Radiofrequency thermocoagulation of right C2-C3 and TON Imaging: Fluoroscopy was used, images where saved to the medical record ANESTHESIA: Local with 1% lidocaine; IV sedation with fentanyl and Versed. EBL: Minimal PROCEDURE INDICATION: The patient with neck pain secondary to cervical arthropathy who had more than 50% relief of her pain with previous diagnostic cervical medial branch block. PROCEDURE DESCRIPTION / TECHNIQUE: The patient was seen and identified in the preoperative area. Risks, benefits, complications, and alternatives were discussed with the patient, the patient agreed to proceed with the procedure and signed the consent. IV was started. Vital signs remained stable throughout the procedure. Patient was taken to the OR and time out was completed. The patient was placed in the prone position on the procedure table. A pillow was placed under the patient's chest to increase the cervical interlaminar space. The cervical area was prepped and draped in the usual sterile fashion. Critical pause was taken. Vital signs were closely monitored during the procedure. Conscious sedation was used during the procedure to decrease patient's anxiety. Using cross-table lateral fluoroscopy, the centroid of the trapezoid of the above referenced levels were identified, marked, and localized with 1% lidocaine. Subsequently, a 20 [id number] radio-frequency cannula with a 10-mm active tip was advanced guided by fluoroscopy to the centroid of the trapezoid of the above referenced levels. Needle tip position was confirmed at the centroid of the trapezoids of the above referenced levels with anteroposterior fluoroscopy. Each site then underwent sensory testing at 50 Hz and 0 to 1 volt and motor testing at 2 Hz and 0 to 3 volt with local stimulation, but no radicular symptoms down the arm. Thereafter the targeted sites underwent radiofrequency thermocoagulation at 80 degrees celsius for 90 seconds after injecting 0.5 ml of PF lidocaine 1%. After thermocoagulation of the targeted sites, 1 ml of 1% lidocaine was then injected after negative aspiration of CSF and blood and with no paresthesias. Cannulas were retracted while injecting lidocaine 1% until the needle is out. Skin was cleansed and bandages were applied. COMPLICATIONS: No acute complications. DISPOSITION / PLANS: The patient was placed in a supine position and transferred to the recovery area in a stable condition for observation and was discharged from the recovery room after meeting discharge criteria. Home discharge instructions given to the patient by the staff. The patient was reexamined prior to discharge. The patient will schedule a follow up as directed.
[2022-04-11] MEDS ORDERED: IV FLUID CONTINUATION 1,000 ML IV ONE (10:08)
[2022-04-11 10:15] VITALS: RESP 15
[2022-04-11 10:31] VITALS: BP 135/84; PULSE 89
--- NOTE | 2022-04-11 10:50 | FL ---
Fluoroscopy HISTORY: Pain 7 seconds fluoroscopy time supplied to the referring clinician. 2 intraoperative C-arm images docume nt the procedure. See dictated report from anesthesia.
== END 2022-04-11 10:40 | disposition home or self-care (01) ==
LOC: ORPAIN 08:40
PROVIDERS: ATTEND Hospitalist
DX: M47.812 Spondylosis without myelopathy or radiculopathy, cervical region (principal); M79.7 Fibromyalgia; Z79.899 Other long term (current) drug therapy; Z79.1 Long term (current) use of non-steroidal anti-inflammatories (NSAID)
CPT/HCPCS: 81025; 64633; J2250; J3010; J2795; J2001

== ENCOUNTER → 2022-05-05 | Outpatient (CLI) | payer BC ==
--- NOTE | 2022-05-05 15:09 | P.PAINPG ---
PQRS Measure Charge Sheet Comment: A 36 yr old female w daughter at side with a history of severe and chronic HAs presents today for evaluation s/p R C2-C3 and 3rd ON injection. Pt states she received 0% pain relief s/p procedure. Pain level is currently at 4/10 in intensity, constant, localized in the base of the head and radiates towards the top of the head, R>L. Pain is on & off x 20 yrs. Pain is provoked by laying supine. Pain is alleviated with PT integrated with massage in Jul, 2021, chirpractic treatment sin Jul 2021, heat, ice, medications (Ibuprofen, Naproxen), repositioning and rest. She also had x-rays of the lumbar spine and R hip s/p fall approx 2 mo ago. She completed x-rays of the affected areas by her PCP Sharmila Posadas at [facility] in [place]. Obtaining imaging results. She was prescribed a prednisone taper but the pain is returning back to 5/10 in intensity, dull, achy in character, localized in the R lower aspect of her lumbar spine w radiation towards the R hip. Interventional pain procedures completed include C2-C3 & 3rd ON injection Patient is currently on Ibuprofen, Naproxen. Patient denies any side effects of the medication(s), denies excessive drowsiness or sleepiness, denies suicidal ideation and reports that the current pain medication is helping to control the pain and improve activities of daily living. Patient denies any motor or sensory deficits. Patient denies any fever or night sweats, denies any change in the bowel movements or urination. Physical Examination: -Constitutional: Cooperative. Not in acute distress . - Neurologic: Cranial nerve II to XII intact. No focal neurological deficits. - Psychatric: Alert & oriented x 3. Matching mood & appropriate affect. Ju dgment and insight intact. - Musculoskeletal: Cervical spine: +BL RUBI/BENEDICT TTP Muscle bulk/ tone/ strength in the bilateral upper extremities normal Vertebral body tenderness to palpation over Spurling test positive Distraction test positive Facet loading test positive Thoracic spine Muscle bulk / tone/ strength in the bilateral paraspinal muscles normal Vertebral body tender to palpation over Facet loading test positive Lumbar spine: Motor bulk/ tone/ strength lower extremities , thigh and legs : 5/5 Deep tendon reflexes : Normal Knee Jerk. Normal Ankle Jerk . Vertebral body tenderness to palpation over L5 Lumbar Facet Loading Test positive R side Straight Leg Raise: positive at 30 degrees right side/ left side Gaenslen's Test positive Sacral spine : Severe tenderness over the Sacroiliac joint: right side / left side Range of motion: Flexion of the lumbar spine <60 degrees Range of motion: Extension of the lumbar spine <20 degrees Gaenslen's Test positive Naveen's Test positive Vida test: positive right side / left side Thigh Thrust Test Sacral Thrust Test Assessment and plan: Chronic ROJAS secondary to BL Occipital Neuralgia, LBP secondary to spondylosis, DDD and facet arthropathy Recommendation of BL RUBI/BENDEICT injections. May need a series, up until RFA, for optimal pain relief. Risks, benefits of procedure discussed and pt verbal ized understanding. Denies anticoagulant use or medical history of diabetes. Recommendation of MRI without contrast of the lumbar spine (Re: M51.36) and R hip (Re: M16.10)/ All patient questions answered MAPS reviewed and it was appropriate. I have spent less than 30 minutes on patient care today. Dr Rosales was available by phone for the evaluation of this patient. The time was used to review the medical records including relevant urine studies and Prescription history (MAPs), review of the available imaging, evaluation and examination of the patient, coordination of care with the medical staff and if applicable referring physicians, as well as creation of the medical record PQRS Narrative: Smoking Status Never smoker Hx Alcohol Use (MH) No Home Medications: Ambulatory Orders ALPRAZolam [Xanax] 0.5 mg PO DAILY 08/24/18 DULoxetine HCL [Cymbalta] 90 mg PO DAILY 08/24/18 Naproxen [Naprosyn] 500 mg PO Q12HR 08/24/18 tiZANidine HCL [Zanaflex] 4 mg PO HS 08/24/18 buPROPion XL [Wellbutrin XL] 300 mg PO DAILY 04/09/22 Controlled Substance Measures - Controlled Substance Measures Is patient prescribed a controlled substance at discharge?: No
[2022-05-05 15:44] VITALS: BP 134/87; PULSE 93; RESP 18; TEMP 98.4
== END ==
LOC: PNWHC3 12:13
PROVIDERS: ATTEND Specialist
DX: M54.81 Occipital neuralgia (principal); M47.816 Spondylosis without myelopathy or radiculopathy, lumbar region; G89.29 Other chronic pain
CPT/HCPCS: 99211

== ENCOUNTER → 2022-05-15 | Outpatient (CLI) | payer BC ==
--- NOTE | 2022-05-16 04:43 | MR ---
EXAMINATION TYPE: MR hip LT wo con DATE OF EXAM: 05/15/2022 COMPARISON: None HISTORY: Left lower back and left hip pain x 3 mos. Multiplanar multiecho imaging of the pelvis and left hip with no contrast. The pelvic ring is intact. Sacroiliac joints appear normal. Bladder distends smoothly. There is small amount of free fluid in the pelvis on the right side. There are bilateral multiple ovarian cysts. No evidence of a pelvic mass. The proximal femurs have fairly normal signal pattern. No edema. No evidence of a fracture. Acetabula appear intact. No evidence of any significant hip joint effusion. No evidence of avascular necrosis. No sign of a soft tissue mass. The muscle structures have fairly normal signal pattern. No edema. IMPRESSION: Negative MR scan of the left hip. Minimal free fluid in the pelvis could be physiologic.
--- NOTE | 2022-05-16 04:51 | MR ---
EXAMINATION TYPE: MR lumbar spine wo con DATE OF EXAM: 05/15/2022 COMPARISON: None HISTORY: Left lower back and left hip pain x 3 mos. Multiplanar multi echo imaging of the lumbar spine with no contrast. The lumbar vertebrae have normal alignment. No compression fracture. There is posterior disc herniati on at L5-S1 into the spinal canal centrally and towards the left side. There is significant impingeme nt on the lateral recess. There is degenerative disc space narrowing at L5-S1 and L2-3. No compression fracture. There is no madie mbar paraspinal mass. Sacroiliac joints are intact. Posterior elements are intact. There is some narr owing of the left-sided L5-S1 neural foramen due to disc herniation. IMPRESSION: Large posterior left side L5-S1 lumbar disc herniation. Mild left-sided neural foraminal impingement. No fracture. Mild L2-3 degenerative disc changes. No fracture seen.
== END | disposition home or self-care (01) ==
LOC: RADMRIMAIN 17:57
PROVIDERS: ATTEND Specialist
DX: M51.27 Other intervertebral disc displacement, lumbosacral region (principal)
CPT/HCPCS: 72148

== ENCOUNTER 2022-06-17 08:57 | Day surgery (SDC) | payer BC ==
[2022-06-16 14:18] VITALS: BMI 29.6
[~2022-06-17 08:57] MED LIST changes: +LIDOCAINE 1% (10MG/ML) FOR IV START INTRADERMA PRN
[2022-06-17 09:31] VITALS: TEMP 97
[2022-06-17] MEDS ORDERED: methylPREDNISolone ACETATE 80 MG/ML 1 ML VIAL ONE (09:48)
[2022-06-17] MEDS ORDERED: ROPIVACAINE 5MG/ML 20ML VIAL ONE (09:48)
[2022-06-17] MEDS ORDERED: MIDAZOLAM 2 MG/2 ML VIAL ONE (09:48)
[2022-06-17] MEDS ORDERED: fentaNYL (PF) 50 MCG/ML 2 ML AMP ONE (09:48)
--- NOTE | 2022-06-17 09:58 | P.PCN ---
Date of Procedure: 06/17/22 Procedure(s) Performed: Preoperative diagnoses= 1- occipital neuralgia. 2-cervicogenic headache Postoperative diagnoses= same as preoperative diagnosis. Procedure= Bilateral Greater ,and lesser occipital nerve block Anesthesia= moderate sedation with Versed 2 mg and fentanyl 100 micrograms Sedation start time : 0 949 . Sedation end time : 0 955 . Estimated blood loss=minimal. Procedure indication= the patient had a history of severe chronic neck pain ,and headache, diagnosed with occipital neuralgia exam was positive for severe tenderness over the occipital nerve bilaterally, she will be a good candidate occipital nerve block, patient failed conservative management Procedure description= the patient was seen and identified in the preoperative holding area, risks and benefits and alternative of the procedure and possible complications discussed with the patient, and he agreed with the preceding, patient signed the consent, an IV was started, and vital signs were monitored and were stable throughout the procedure, patient was placed in the sitting position or table and the neck area was prepped and draped with a sterile fashion, vital signs were closely monitored during the procedure, 25-gauge needle advanced 1 inch lateral to the occipital protuberance on the right side, at the location of the right occipital nerve , then after negative aspiration for heme and CSF and there was no paresthesia during the injection, 6 ml of Gurpreet vacaine 0.5% and 20 mg of Depo-Medrol injected after negative aspiration, and after that the needle advanced slowly and placed at the location of the right lesser occipital nerve and after negative aspiration ropivacaine 0.5% 2 mL and 20 mg of Depo-Medrol mixed with her and injected at the location of the right lesser occipital nerve , then the needle removed, and the entire same procedure was repeated for the left Greater occipital nerve on the left lesser occipital nerve. Patient tolerated the procedure well without any complication, The patient returned to supine position after the back was cleaned and a Band- Aid applied, the patient transported to recovery room in stable condition and he was monitored for 30 minutes before he was discharged home and then patient was reexamined before going home and patient was discharged in stable condition and patient will follow up with the pain clinic in a few weeks.
[2022-06-17] MEDS ORDERED: IV FLUID CONTINUATION 1,000 ML IV ONE ×2 (10:00)
[2022-06-17 10:59] VITALS: BP 135/83; PULSE 87; RESP 18
== END 2022-06-17 10:50 | disposition home or self-care (01) ==
LOC: ORPAIN 08:57
PROVIDERS: ATTEND Specialist
DX: M54.81 Occipital neuralgia (principal); G44.86 Cervicogenic headache; G89.29 Other chronic pain; M54.2 Cervicalgia
CPT/HCPCS: 64405; 64450; 81025; J2250; J1040; J3010; J2795

== ENCOUNTER 2022-07-03 09:27 | Day surgery (SDC) | payer BC ==
[2022-07-02 11:00] VITALS: BMI 29.5
[2022-07-03 09:41] VITALS: TEMP 96.8
[2022-07-03] MEDS ORDERED: fentaNYL (PF) 50 MCG/ML 2 ML AMP ONE (10:16)
[2022-07-03] MEDS ORDERED: IOPAMIDOL M200 10 ML VIAL ONE (10:16)
[2022-07-03] MEDS ORDERED: MIDAZOLAM 2 MG/2 ML VIAL ONE (10:16)
[2022-07-03] MEDS ORDERED: methylPREDNISolone ACETATE 80 MG/ML 1 ML VIAL ONE (10:16)
--- NOTE | 2022-07-03 10:28 | P.PCN ---
Date of Procedure: 07/03/22 Procedure(s) Performed: PREOPERATIVE DIAGNOSIS: 1- Lumbar herniated Disc Diseases 2-Lumbar radiculopathy POSTOPERATIVE DIAGNOSIS: Same as preop diagnosis. PROCEDURE 1. Lumbar epidural steroid injection under fluoroscopic guidance at the L5-S1 level. (Fluoroscopy imaging was available in radiology department) 2. Lumbar epidurogram. ANESTHESIA: moderate sedation with intravenous Versed 2 mg ,and fentanyle 100 Mcg Sedation start time : 1017 Sedation end time : 1026 EBL: Minimal PROCEDURE INDICATION: The patient with low back pain and radiculitis symptoms unresponsive to conservative treatment. Fluoroscopy was used to optimize visualization of the needle placement and to maximize safety. PROCEDURE DESCRIPTION / TECHNIQUE: The patient was seen and identified in the preoperative area. Risks, benefits, complications including but not limited to infections ,bleeding ,allergic reaction to the medications ,nerve damage and not complete pain releife , and alternatives were discussed with the patient. The patient agreed to proceed with the procedure and signed the consent. IV was started, and vital signs were stable. Patient was taken to the OR and time out was completed. The patient was placed in the prone position on procedure table and a pillow was placed under the abdomen to reduce lumbar lordosis. The lumbosacral area was prepped and draped in the usual sterile fashion.ere closely monitored during the procedure. Conscious sedation was used during the procedure to decrease patients anxiety. Vital signs was monitered during the entire procedure. Using anterior-posterior fluoroscopy, the L5-S1 interlaminar space was identified and the skin over this site was marked and then infiltrated with 1% lidocaine subcutaneously. Subsequently, a 20-gauge Tuohy epidural needle was inserted and advanced toward the epidural space using the ``Loss of resistance technique and guided by AP and lateral fluoroscopy. The correct needle position in the epidural space was verified with the injection of 2 mL of the water soluble contrast dye Isovue 200 contrast and observing an excellent epidurogram with the epidural spread of the dye, after negative aspiration for blood and CSF and in the absence of paresthesias. Again after negative aspiration, a 6 ml mixture containing 80 mg of Depo-medrol ( Preservetive Free ), and 2 ml of preservative free Normal Saline, and 2 ml of preservative free lidocaine 1% solution was injected and a washout of epidurogram was seen. Needle was withdrawn intact, skin was cleansed, and bandages were applied. COMPLICATIONS: None DISPOSITION / PLANS: The patient was placed in a supine position and transferred to the recovery area in a stable condition for observation. There was no evidence of lower extremity motor or sensory deficit after the procedure. Patient was discharged from the recovery room after meeting discharge criteria. Home discharge instructions were given to the patient by the staff. The patient was reexamined prior to discharge. The patient will schedule a follow up in the clinic in 2-4 weeks.
[2022-07-03] MEDS ORDERED: IV FLUID CONTINUATION 1,000 ML IV ONE (10:33)
[2022-07-03 10:35] VITALS: RESP 16
--- NOTE | 2022-07-03 10:42 | FL ---
EXAMINATION TYPE: FL guided pain mgmt statistic DATE OF EXAM: 07/03/2022 HISTORY: Fluoroscopy time 1 seconds of fluoroscopy provided. IMPRESSION: 1. Fluoroscopy time.
[2022-07-03 10:52] VITALS: BP 128/55; PULSE 69
== END 2022-07-03 11:02 | disposition home or self-care (01) ==
LOC: ORPAIN 09:27
PROVIDERS: ATTEND Specialist
DX: M51.16 Intervertebral disc disorders with radiculopathy, lumbar region (principal)
CPT/HCPCS: 99152; 81025; 62323; J2250; J1040; J3010; Q9966

== ENCOUNTER → 2022-08-07 | Outpatient (CLI) | payer BC ==
[2022-08-07 12:00] VITALS: BP 121/80; PULSE 74; RESP 18; TEMP 98
--- NOTE | 2022-08-07 15:04 | P.PAINPG ---
PQRS Measure Charge Sheet Comment: A 37 yr old female with a history of severe and chronic low back pain secondary to lumbar degenerative disc diseases and lumbar spondylosis with facet arthropathy without myelopathy presents today for evaluation s/p L Paramedial JOAQUIN L5-S1 Pt states she experienced 60% pain relief x 2 wks s/p procedure. Pa in level is currently at 8/10 in intensity, constant, lower lumbar spine, burning in character w shooting towards L hip. Pain is provoked by bending, sitting/ laying supine for periods of 2 hrs or more. Pain is alleviated with PT years ago, home guided exercises, chiropractic treatments x 2 in March 2022 and as needed, heat, ice, medications (Naproxen, Biofreeze), repositioning and rest. Interventional pain procedures completed include JOAQUIN L5-S1 x1 Patient is currently on Naproxen, Biofreeze gel Patient denies any side effects of the medication(s), denies excessive drowsiness or sleepiness, denies suicidal ideation and reports that the current pain medication is helping to control the pain and improve activities of daily living. Patient denies any motor or sensory deficits. Patient denies any fever or night sweats, denies any change in the bowel movements or urination. Physical Examination: -Constitutional: Cooperative. Not in acute distress . - Neurologic: Cranial nerve II to XII intact. No focal neurological deficits. - Psychatric: Alert & oriented x 3. Matching mood & appropriate affect. Judgment and insight intact. - Musculoskeletal: Cervical spine: Muscle bulk/ tone/ strength in the bilateral upper extremities normal Vertebral body tenderness to palpation over Spurling test positive Distraction test positive Facet loading test positive Thoracic spine Muscle bulk / tone/ strength in the bilateral paraspinal muscles normal Vertebral body tender to palpation over Facet loading test positive Lumbar spine: Motor bulk/ tone/ strength lower extremities , thigh and legs : 5/5 Deep tendon reflexes : Normal Knee Jerk. Normal Ankle Jerk . Vertebral body tenderness to palpation over L5 Lumbar Facet Loading Test positive Straight Leg Raise: positive at 30 degrees right side/ left side Gaenslen's Test positive Sacral spine : Severe tenderness over the Sacroiliac joint: right side / left side Range of motion: Flexion of the lumbar spine <60 degrees Range of motion: Extension of the lumbar spine <20 degrees Gaenslen's Test positive Naveen's Test positive Vida test: positive right side / left side Thigh Thrust Test Sacral Thrust Test Assessment and plan: Chronic low back pain secondary to lumbar degenerative disc disease , lumbar spondylosis with facet arthropathy without myelopathy Recommendation of JOAQUIN L Paramedian L5-S1 #2. May need a series of injections, up to 3 within a 6 mo period, for optimal pain relief. Risks, benefits of procedure discussed and pt verbalized understanding. Admits to anticoagulant use or medical history of diabetes. Protocol for discontinuation / continuation of medications kuldeep procedure discussed. All patient questions answered I have spent less than 30 minutes on patient care today. Dr Rosales was available by phone for the evaluation of this patient. The time was used to review the medical records including relevant urine studies and Prescription history (MAPs), review of the available imaging, evaluation and examination of the patient, coordination of care with the medical staff and if applicable referring physicians, as well as creation of the medical record PQRS Narrative: Smoking Status Never smoker Hx Alcohol Use (MH) No Home Medications: Ambulatory Orders ALPRAZolam [Xanax] 0.5 mg PO DAILY 08/24/18 Naproxen [Naprosyn] 500 mg PO Q12HR 08/24/18 tiZANidine HCL [Zanaflex] 4 mg PO HS 08/24/18 DULoxetine HCL [Cymbalta] 120 mg PO DAILY 06/16/22 buPROPion XL [Wellbutrin XL] 150 mg PO DAILY 06/16/22 Controlled Substance Measures - Controlled Substance Measures Is patient prescribed a controlled substance at discharge?: No
== END | disposition home or self-care (01) ==
LOC: PNWHC3 10:19
PROVIDERS: ATTEND Specialist
DX: M51.36 Other intervertebral disc degeneration, lumbar region (principal); M47.896 Other spondylosis, lumbar region
CPT/HCPCS: 99211

== ENCOUNTER 2022-09-04 08:58 | Day surgery (SDC) | payer BC ==
[2022-09-04] MEDS ORDERED: LIDOCAINE 1% (10MG/ML) FOR IV START INTRADERMA PRN (09:11)
[2022-09-04] MEDS ORDERED: LACTATED RINGERS 1,000 ML IV SCH (09:11)
[2022-09-04 09:17] VITALS: TEMP 97
[2022-09-04] MEDS ORDERED: fentaNYL (PF) 50 MCG/ML 2 ML AMP ONE (09:42)
[2022-09-04] MEDS ORDERED: MIDAZOLAM 2 MG/2 ML VIAL ONE (09:42)
[2022-09-04] MEDS ORDERED: methylPREDNISolone ACETATE 80 MG/ML 1 ML VIAL ONE (09:42)
[2022-09-04] MEDS ORDERED: IOPAMIDOL M200 10 ML VIAL ONE (09:42)
--- NOTE | 2022-09-04 09:52 | P.PCN ---
Date of Procedure: 09/04/22 Procedure(s) Performed: PREOPERATIVE DIAGNOSIS: 1- Lumbar herniated Disc Diseases 2-Lumbar radiculopathy POSTOPERATIVE DIAGNOSIS: Same as preop diagnosis. PROCEDURE 1. Lumbar epidural steroid injection under fluoroscopic guidance at the L5-S1 level. (Fluoroscopy imaging was available in radiology department) 2. Lumbar epidurogram. ANESTHESIA: moderate sedation with intravenous Versed 2 mg ,and fentanyle 100 Mcg Sedation start time : 09:44 Sedation end time : 09:50 EBL: Minimal PROCEDURE INDICATION: The patient with low back pain and radiculitis symptoms unresponsive to conservative treatment. Fluoroscopy was used to optimize visualization of the needle placement and to maximize safety. PROCEDURE DESCRIPTION / TECHNIQUE: The patient was seen and identified in the preoperative area. Risks, benefits, complications including but not limited to infections ,bleeding ,allergic reaction to the medications ,nerve damage and not complete pain releife , and alternatives were discussed with the patient. The patient agreed to proceed with the procedure and signed the consent. IV was started, and vital signs were stable. Patient was taken to the OR and time out was completed. The patient was placed in the prone position on procedure table and a pillow was placed under the abdomen to reduce lumbar lordosis. The lumbosacral area was prepped and draped in the usual sterile fashion.ere closely monitored during the procedure. Conscious sedation was used during the procedure to decrease patients anxiety. Vital signs was monitered during the entire procedure. Using anterior-posterior fluoroscopy, the L5-S1 interlaminar space was identified and the skin over this site was marked and then infiltrated with 1% lidocaine subcutaneously. Subsequently, a 20-gauge Tuohy epidural needle was inserted and advanced toward the epidural space using the ``Loss of resistance technique and guided by AP and lateral fluoroscopy. The correct needle position in the epidural space was verified with the injection of 2 mL of the water soluble contrast dye Isovue 200 contrast and observing an excellent epidurogram with the epidural spread of the dye, after negative aspiration for blood and CSF and in the absence of paresthesias. Again after negative aspiration, a 6 ml mixture containing 80 mg of Depo-medrol ( Preservetive Free ), and 2 ml of preservative free Normal Saline, and 2 ml of preservative free lidocaine 1% solution was injected and a washout of epidurogram was seen. Needle was withdrawn intact, skin was cleansed, and bandages were applied. COMPLICATIONS: None DISPOSITION / PLANS: The patient was placed in a supine position and transferred to the recovery area in a stable condition for observation. There was no evidence of lower extremity motor or sensory deficit after the procedure. Patient was discharged from the recovery room after meeting discharge criteria. Home discharge instructions were given to the patient by the staff. The patient was reexamined prior to discharge. The patient will schedule a follow up in the clinic in 2-4 weeks.
[2022-09-04] MEDS ORDERED: IV FLUID CONTINUATION 1,000 ML IV ONE (09:55)
[2022-09-04 10:22] VITALS: RESP 14
[2022-09-04 10:23] VITALS: BP 133/91; PULSE 88
--- NOTE | 2022-09-04 12:32 | FL ---
EXAMINATION TYPE: FL guided pain mgmt statistic DATE OF EXAM: 09/04/2022 FLUOROSCOPY Fluoroscopy time of 1 seconds was used during lumbar epidural injection. 1 image/s document/s the pr darlin.
== END 2022-09-04 10:25 | disposition home or self-care (01) ==
LOC: ORPAIN 08:58
PROVIDERS: ATTEND Specialist
DX: M51.16 Intervertebral disc disorders with radiculopathy, lumbar region (principal)
CPT/HCPCS: 81025; 62323; J2250; J1040; J3010; Q9966

== ENCOUNTER → 2022-09-18 | Outpatient (CLI) | payer BC ==
[2022-09-18 11:21] VITALS: BP 131/90; PULSE 101; RESP 18; TEMP 98.1
--- NOTE | 2022-09-18 14:33 | P.PAINPG ---
PQRS Measure Charge Sheet Comment: A 37 yr oldfemale with a history of severe and chronic low back pain secondary to lumbar DDD and spondylosis with facet arthropathy without myelopathy presents today for evaluation s/p L paramedian JOAQUIN L5-S1. Pt states she experienced 10% pain relief x 2 wks s/p procedure. Pain level is currently at 6/10 in intensity, constant, localized in the L lower lumbar spine, sharp in character w shooting towards the L hip. Pain is provoked by sitting for periods of 20 min or more. Pain is alleviated with medication (naproxen, ibuprofen), injections, heat, chiropractic she was as needed, repositioning and rest. Interventional pain procedures completed include JOAQUIN L5-S1 Patient is currently on Naproxen, Ibuprofen Patient denies any side effects of the medication(s), denies excessive drowsiness or sleepiness, denies suicidal ideation and reports that the current pain medication is helping to control the pain and improve activities of daily living. Patient denies any motor or sensory deficits. Patient denies any fever or night sweats, denies any change in the bowel movements or urination. Physical Examination: -Constitutional: Cooperative. Not in acute distress . - Neurologic: Cranial nerve II to XII intact. No focal neurological deficits. - Psychatric: Alert & oriented x 3. Matching mood & appropriate affect. Judgment and insight intact. - Musculoskeletal: Cervical spine: Muscle bulk/ tone/ strength in the bilateral upper extremities normal Vertebral body tenderness to palpation over Spurling test positive Distraction test positive Facet loading test positive Thoracic spine Muscle bulk / tone/ strength in the bilateral paraspinal muscles normal Vertebral body tender to palpation over Facet loading test positive Lumbar spine: Motor bulk/ tone/ strength lower extremities , thigh and legs : 5/5 Deep tendon reflexes : Normal Knee Jerk. Normal Ankle Jerk . Vertebral body tenderness to palpation over Lumbar Facet Loading Test positive Straight Leg Raise: positive at 30 degrees right side/ left side Gaenslen's Test positive Sacral spine : Severe tenderness over the Sacroiliac joint: right side / left side Range of motion: Flexion of the lumbar spine <60 degrees Range of motion: Extension of the lumbar spine <20 degrees L Gaenslen's Test positive Vida test: positive right side / left side Thigh Thrust Test L side (mild) L Sacral Thrust Test Assessment and plan: Chronic LBP secondary to lumbar DDD, spondylosis with facet arthropathy without myelopathy, L Sacroiliitis Recommendation of L SI injection. May need a series, up to 4 within a 12 mo period, for optimal pain relief. Risks, benefits of procedure discussed and pt verbalized understanding. Admits to anticoagulant use or medical history of diabetes. Protocol for discontinuation / continuation of medications peir procedure discussed. All patient questions answered I have spent less than 30 minutes on patient care today. Dr Rosales was available by phone for the evaluation of this patient. The time was used to review the medical records including relevant urine studies and Prescription history (MAPs), review of the available imaging, evaluation and examination of the patient, coordination of care with the medical staff and if applicable referring physicians, as well as creation of the medical record PQRS Narrative: Smoking Status Never smoker Hx Alcohol Use (MH) No Home Medications: Ambulatory Orders ALPRAZolam [Xanax] 0.5 mg PO DAILY 08/24/18 Naproxen [Naprosyn] 500 mg PO Q12HR 08/24/18 tiZANidine HCL [Zanaflex] 4 mg PO HS 08/24/18 DULoxetine HCL [Cymbalta] 120 mg PO DAILY 06/16/22 buPROPion XL [Wellbutrin XL] 300 mg PO DAILY 06/16/22 Controlled Substance Measures - Controlled Substance Measures Is patient prescribed a controlled substance at discharge?: No
== END ==
LOC: PNWHC3 10:54
PROVIDERS: ATTEND Specialist
DX: M47.816 Spondylosis without myelopathy or radiculopathy, lumbar region (principal); M51.36 Other intervertebral disc degeneration, lumbar region
CPT/HCPCS: 99211

== ENCOUNTER 2022-10-07 12:27 | Day surgery (SDC) | payer BC ==
[2022-10-07] MEDS ORDERED: LACTATED RINGERS 1,000 ML IV ONE ×2 (12:40→13:18)
[2022-10-07 12:47] VITALS: TEMP 97
[2022-10-07] MEDS ORDERED: ROPIVACAINE 5 MG/ML 20 ML AMPULE ONE (13:03)
[2022-10-07] MEDS ORDERED: methylPREDNISolone ACETATE 40 MG/ML 1 ML VIAL ONE (13:03)
[2022-10-07] MEDS ORDERED: MIDAZOLAM 2 MG/2 ML VIAL ONE (13:03)
[2022-10-07] MEDS ORDERED: fentaNYL (PF) 50 MCG/ML 2 ML AMP ONE (13:03)
--- NOTE | 2022-10-07 13:17 | P.PCN ---
Date of Procedure: 10/07/22 Procedure(s) Performed: Procedure= left sacroiliac joints steroid injection under fluoroscopy guidance (fluoroscopy image stored on file in the radiology Department ) Preoperative diagnosis= 1- left sacroiliitis 2-lumbar degenerative disc disease 3-lumbar facet arthropathy Postoperative diagnosis=Same as preop Diagnosis . Complication = none Condition= stable Anesthesia= moderate sedation with intravenous Versed 2 mg , and fentanyl 100 micrograms . Sedation start time: 1306 Sedation end time : 1313 Indication for the procedure= patient complaining of low back pain , examination was positive for severe tenderness over the left sacroiliac joints , and patient diagnosed with sacroiliitis, for this reason she was good candidate for ;left sacroiliac joint steroid injection. Description of the procedure= procedure risk and benefits discussed with the patient, including but not limited, risk of infection and bleeding, and ALLERGIC reaction to the medication and not complete pain relief and patient agreed with the preceding patient taken to the operating room, placed in prone position or standard monitors applied to the patient then after induction of anesthesia back prepped with chlorhexidine 3 times , Then under strict sterile technique, the left sacroiliac joint steroid injection done under strict sterile technique local infiltration of the skin and subcu interstitial at the location of the left sacroiliac joint then a 22-gauge Quincke Needle advanced slowly under fluoroscopy time placed in the left sacroiliac joint, needle placement confirmed with AP and oblique and lateral view then after appropriate needle placement confirmed and after negative aspiration 0.5% Ropivacaine 4 mL and 40 mg of Depo-Medrol injected in the left sacroiliac joint after negative aspiration patient tolerated the procedure well that any complications and she will follow up in clinic 3 weeks
[2022-10-07 13:21] VITALS: PULSE 87
--- NOTE | 2022-10-07 13:28 | FL ---
Intraoperative/procedural fluoroscopic services were provided. Total fluoroscopy time is 9 seconds wi th a total of 1 submitted images to PACS. Please see the operative/procedural note for further detail s.
[2022-10-07] MEDS ORDERED: LACTATED RINGERS 1,000 ML IV SCH (13:30)
[2022-10-07] MEDS ORDERED: LIDOCAINE 1% (10MG/ML) FOR IV START INTRADERMA PRN (13:30)
[2022-10-07 13:39] VITALS: BP 126/88; RESP 16
== END 2022-10-07 13:50 | disposition home or self-care (01) ==
LOC: ORPAIN 12:27
PROVIDERS: ATTEND Specialist
DX: M46.1 Sacroiliitis, not elsewhere classified (principal); M51.36 Other intervertebral disc degeneration, lumbar region; M47.816 Spondylosis without myelopathy or radiculopathy, lumbar region
CPT/HCPCS: 81025; 27096; J2250; J1030; J3010; J2795

== ENCOUNTER → 2022-10-23 | Outpatient (CLI) | payer BC ==
[2022-10-23 13:37] VITALS: BP 123/87; PULSE 92; RESP 18; TEMP 98.6
--- NOTE | 2022-10-23 14:56 | P.PAINPG ---
PQRS Measure Charge Sheet Comment: A 37 yr old female with a history of severe and chronic low back pain secondary to lumbar DDD and spondylosis with facet arthropathy without myelopathy presents today for evaluation s/p L SI injection. Pt states she experienced 10% pain relief x 2 wks s/p procedure. Pain level is provoked at 6/10 in intensity, constant, localized in the lumbar spine, dull/ achy/ sharp in character w shooting towards the L hip. Pain is provoked by bending and lifting. Pain is alleviated with chiropractic treatments and massage as needed, home exercise as tolerated, heat, meds (Naproxen, Zanaflex), laying supine, repositioning and rest. Interventional pain procedures completed include L SI injection, Evelina Patient is currently on Naproxen, Zanaflex Patient denies any side effects of the medication(s), denies excessive drowsiness or sleepiness, denies suicidal ideation and reports that the current pain medication is helping to control the pain and improve activities of daily living. Patient denies any motor or sensory deficits. Patient denies any fever or night sweats, denies any change in the bowel movements or urination. Physical Examination: -Constitutional: Cooperative. Not in acute distress . - Neurologic: Cranial nerve II to XII intact. No focal neurological deficits. - Psychatric: Alert & oriented x 3. Matching mood & appropriate affect. Judgment and insight intact. - Musculoskeletal: Cervical spine: Muscle bulk/ tone/ strength in the bilateral upper extremities normal Vertebral body tenderness to palpation over Spurling test positive Distraction test positive Facet loading test positive Thoracic spine Muscle bulk / tone/ strength in the bilateral paraspinal muscles normal Vertebral body tender to palpation over Facet loading test positive Lumbar spine: Motor bulk/ tone/ strength lower extremities , thigh and legs : 5/5 Deep tendon reflexes : Normal Knee Jerk. Normal Ankle Jerk . Vertebral body tenderness to palpation over L5 Lumbar Facet Loading Test positive Straight Leg Raise: positive at 30 degrees right side/ left side Gaenslen's Test positive Sacral spine : Severe tenderness over the Sacroiliac joint: right side / left side Range of motion: Flexion of the lumbar spine <60 degrees Range of motion: Extension of the lumbar spine <20 degrees Gaenslen's Test positive Vida test: positive right side / left side Thigh Thrust Test Sacral Thrust Test Assessment and plan: Chronic low back pain secondary to lumbar degenerative disc disease, spondylosis with facet arthropathy without myelopathy Recommendation of L TFESI L5-S1. May need a series of injections, up to 3 within a 6 mo period, for optimal pain relief. Risks, benefits of procedure discussed and pt verbalized understanding. Admits to anticoagulant use or medical history of diabetes. Protocol for discontinuation/ continuation of medications kuldeep procedure discussed. All questions answered. I have spent less than 30 minutes on patient care today. Dr Rosales was available by phone for the evaluation of this patient. The time was used to review the medical records including relevant urine studies and Prescription h istory (MAPs), review of the available imaging, evaluation and examination of the patient, coordination of care with the medical staff and if applicable referring physicians, as well as creation of the medical record - Pain Location Lower Back Non-Pharmacological Interventions: Chiropractic Treatment, Heat, Home Exercise, Inactivity, Massage, Position/Reposition, Stretching Pharmacological Interventions: Epidural, PRN Medication, Scheduled Medication PQRS Narrative: Smoking Status Never smoker Hx Alcohol Use (MH) No Home Medications: Ambulatory Orders ALPRAZolam [Xanax] 0.5 mg PO DAILY 08/24/18 Naproxen [Naprosyn] 500 mg PO Q12HR 08/24/18 tiZANidine HCL [Zanaflex] 4 mg PO HS 08/24/18 DULoxetine HCL [Cymbalta] 120 mg PO DAILY 06/16/22 buPROPion XL [Wellbutrin XL] 300 mg PO DAILY 06/16/22 Controlled Substance Measures - Controlled Substance Measures Is patient prescribed a controlled substance at discharge?: No
== END ==
LOC: PNWHC3 10:37
PROVIDERS: ATTEND Specialist
DX: M47.816 Spondylosis without myelopathy or radiculopathy, lumbar region (principal); M51.36 Other intervertebral disc degeneration, lumbar region; G89.29 Other chronic pain
CPT/HCPCS: 99211

== ENCOUNTER → 2023-01-26 | Outpatient (CLI) | payer BC ==
--- NOTE | 2023-01-27 08:13 | MR ---
EXAMINATION TYPE: MR cspine/lspine wo con DATE OF EXAM: 01/26/2023 COMPARISON: Prior MRI lumbar spine May 15, 2022 HISTORY: Headaches with chronic neck pain for several years, Low back pain for 1 year into left thigh . Spondylosis per order. TECHNIQUE: Multiplanar, multisequence imaging of the cervical and lumbar spine are performed without IV contrast. FINDINGS: Cervical spine: FINDINGS: Sagittal images of the cervical spine show the craniocervical junction to appear within nor mal limits. The cervical and upper thoracic spinal cord is normal in course, caliber, and signal. Th ere is slight grade 1 retrolisthesis C5 on C6. The vertebral body and intravertebral disk heights ar e normal. The bone marrow signal intensity is within normal limits. Axial images at C2-C3 level shows a right paracentral/foraminal disc protrusion effacing anterolatera l thecal sac and causing asymmetric moderate right-sided neural foraminal narrowing. Axial images at C3-C4 and C4-C5 levels appear within normal limits. Axial images at C5-C6 level spondylolisthesis with broad based right paracentral disc protrusion effa cing the anterolateral thecal sac and causing mild right-sided neural foraminal narrowing. Axial images at C6-C7 and C7-T1 levels appear within normal limits. IMPRESSION: Multilevel spondylolisthesis and degenerative change in the cervical spine as detailed ab ove. Lumbar spine: Sagittal images of the lumbar spine show vertebral body heights and alignment to remain satisfactory. Persistent disc desiccation with mild disc space narrowing at L2-L3 and more moderate disc space juani rowing with heterogeneous Modic type II endplate changes anteriorly at L5-S1 level redemonstrated. T he conus medullaris is stable and slightly high in position ending at T11-T12 disc space level. Axial images show T12-L1 and L1-L2 levels to appear within normal limits. Axial images at L2-L3 level show mild broad disc bulge minimally effacing the anterior thecal sac. Pa tent bilateral neural foramina. No significant change from prior. Axial images at L3-L4 and L4-L5 levels remain within normal limits. Axial images at L5-S1 level redemonstrates prominent broad-based left paracentral/foraminal disc prot rusion encroaching on central left S1 nerve with asymmetric moderate inferior left-sided neural isa inal narrowing seen best on axial image 2 and sagittal images 5 through 9. No significant change from prior MRI. Right-sided neural foramina is patent. Paraspinal muscle bulk is preserved. IMPRESSION: Multilevel degenerative change L2-L3 and L5-S1 level has similar appearance to most recen t MRI. Attention to L5-S1 level where large lobulated disc herniation causes neural foraminal narrowi ng and encroachment on central left S1 nerve root likely accounting for patient's radiculopathy type symptoms.
== END | disposition home or self-care (01) ==
LOC: RADMRIMAIN 17:15
PROVIDERS: ATTEND Neurological Surgery
DX: M51.36 Other intervertebral disc degeneration, lumbar region (principal); M47.896 Other spondylosis, lumbar region; M47.812 Spondylosis without myelopathy or radiculopathy, cervical region
CPT/HCPCS: 72141; 72148

== ENCOUNTER → 2023-05-08 | Outpatient (CLI) | payer BC ==
--- NOTE | 2023-05-09 10:06 | MR ---
EXAMINATION TYPE: MR lumbar spine wo con DATE OF EXAM: 05/08/2023 6:36 AM COMPARISON: . 05/15/2022, 01/26/2023 CLINICAL INDICATION: Female, 37 years old with history of M51.36 intervertebral disc degeneration; Lo w back pain, post surgery. TECHNIQUE: Multi planar, multi sequence imaging was performed utilizing: T1-weighted, T2-weighted, a nd turbo inversion recovery imaging of the lumbar spine. IV Contrast: None. FINDINGS: Alignment: The lumbar vertebral bodies have preserved heights and alignment. Cord: The conus medullaris and the distal spinal cord appear unremarkable with regards to their signa l intensity and morphology. Bones/Discs: Degeneration changes throughout the spine with scattered disc desiccation. Findings wors e at L5-S1 with complete disc space loss adjacent bony edema on the vertebrae and some Modic indicate changes. Postsurgical changes at this level with a left laminectomy. No organizing fluid collection within the surgical bed. No evidence for CSF leak. T12-L1: No evidence of significant spinal canal stenosis or neural foraminal stenosis. L1-L2: No evidence of significant spinal canal stenosis or neural foraminal stenosis. L2-L3: No evidence of significant spinal canal stenosis or neural foraminal stenosis. L3-L4: No evidence of significant spinal canal stenosis or neural foraminal stenosis. L4-L5: No evidence of significant spinal canal stenosis or neural foraminal stenosis. L5-S1: The disc is rounded posterior morphology without significant spinal canal stenosis. Facet join t arthropathy with mild to moderate neural foraminal stenosis. Prior disc extrusion has been surgical ly removed. No significant spinal canal or neural foraminal stenosis in the remainder of the visualized levels. Other findings: None. IMPRESSION: 1. No definitive evidence of disc herniation or significant spinal canal stenosis. 2. Postsurgical changes with disc degeneration most pronounced at L5-S1. No organizing fluid collect ions identified in the surgical bed.
== END | disposition home or self-care (01) ==
LOC: RADMRIMAIN 05:59
PROVIDERS: ATTEND Neurological Surgery
DX: M51.36 Other intervertebral disc degeneration, lumbar region (principal); M51.37 Other intervertebral disc degeneration, lumbosacral region
CPT/HCPCS: 72148